=== PATIENT | male | born 1980 | race Caucasian/White ===

== ENCOUNTER 2024-09-28 19:40 | Emergency (ER) | payer BC, SELFPAY ==
--- OUTSIDE RECORDS SUMMARY | 2024-09-28 19:43 | XMS_ITS | Clinical Summary ---
Author Organization [facility] Address [place], [place] [address] Care Team Providers Care [address] Sprinkler Name Role Phone Filipe Canales MD Primary Care Provider + Allergies Active Allergy Reactions Criticality Noted Date Comments Lisinopril Cough Medium 07/25/2018 Unlisted Allergen (Include Detail In Comments) Rash Medium 07/24/2018 Neoprene (coating on joint braces) Paroxetine Intolerance-Can't Take 01/14/2007 fatigue Medications Patients Unique Medication From Home Take 2 tablets by mouth 2 times daily if needed for Other (Specify) (for pain). Dried Hicks pills Active nitroglycerin (NITROSTAT) 0.4 mg sublingual tabletIndications :ASHD (arteriosclerotic heart disease) Place 1 tablet under the tongue every 5 minutes if needed. 25 tablet 07/25/2018 1:49 PM EQUINE BREEDER 8 Active Cholecalciferol, Vitamin D3, (VITAMIN D-3) 5,000 unit tab Take 1 tablet by mouth once daily. 0 8 Active aspirin chewable 81 mg chewable tabletIndications :ASHD (arteriosclerotic heart disease) Take 1 tablet by mouth once daily. 90 tablet 3 9 Active FREESTYLE SELINA 14 DAY SENSOR kitIndications:Ty pe 2 diabetes mellitus without complication, without long-term current use of insulin (HC) As directed. Change every 14 days 2 Each 11 9 Active PRODIGY NO CODING stripIndications: Diabetes mellitus type 2 in nonobese (HC) USE STRIP TO CHECK GLUCOSE THREE TIMES DAILY DIRECTED 300 Each 3 0 Active blood-glucose meterIndications: Diabetes mellitus type 2 in nonobese (HC) Dispense meter, test strips, lancets covered by pt ins. Dispense item covered by pt ins. Check 3 times daily. 1 Device 0 Active blood sugar diagnostic (BLOOD GLUCOSE TEST) stripIndications: Diabetes mellitus type 2 in nonobese (HC) Test 3 times per day. Dispense item covered by pt ins 300 Each 3 0 Active lancetsIndication s:Diabetes mellitus type 2 in nonobese (HC) Test 3 times per day. Dispense item covered by pt ins 300 Each 3 0 Active pioglitazone (ACTOS) 30 mg tabletIndications :Diabetes mellitus type 2 in nonobese (HC) Take 1 tablet by mouth once daily. 90 tablet 3 0 Active metoprolol (LOPRESSOR) 100 mg tabletIndications :ASHD (arteriosclerotic heart disease),Essentia l hypertension Take 1 tablet by mouth 2 times daily. 180 tablet 3 0 Active clopidogreL (PLAVIX) 75 mg tabletIndications :ASHD (arteriosclerotic heart disease) Take 1 tablet by mouth every morning. Do not stop taking or miss doses for minimum one year/ until OK'd by classifier tender. 90 tablet 3 0 Active allopurinoL (ZYLOPRIM) 100 mg tabletIndications :Gout, unspecified cause, unspecified chronicity, unspecified site TAKE 1 TABLET BY MOUTH TWICE A DAY 180 Tablet 1 Active metFORMIN (GLUCOPHAGE) 1,000 mg tabletIndications :Type 2 diabetes mellitus without complication, without long-term current use of insulin (HC) TAKE 1 TABLET BY MOUTH TWICE A DAY 180 Tablet 1 Active losartan (COZAAR) 25 mg tabletIndications :STEMI involving left circumflex coronary artery (HC),Essential hypertension TAKE 1 TABLET BY MOUTH EVERY DAY 90 Tablet 1 Active atorvastatin (LIPITOR) 80 mg tabletIndications :ASHD (arteriosclerotic heart disease) TAKE 1 TABLET BY MOUTH EVERYDAY AT BEDTIME 90 Tablet 1 Active glipiZIDE (GLUCOTROL) 10 mg tabletIndications :Diabetes mellitus type 2 in nonobese (HC) TAKE 1 TABLET BY MOUTH EVERY DAY BEFORE A MEAL 90 Tablet 1 Active hydroCHLOROthiazi de (HCTZ) 25 mg tabletIndications :HTN (hypertension) TAKE 1 TABLET BY MOUTH EVERY DAY 90 Tablet 1 Active Active Problems Problem Noted Date Diagnosed Date Type 2 diabetes mellitus wit h circulatory disorder, without long-term current use of insulin 05/10/2020 Retinopathy 06/29/2019 Chronic insomnia 08/23/2018 ASHD (arteriosclerotic heart disease) 07/24/2018 STEMI involving left circumflex coronary artery 07/24/2018 Acute pericarditis 07/23/2018 HTN (hypertension) 07/23/2018 ACS (acute coronary syndrome) 07/23/2018 Chest pain 07/23/2018 Mixed hyperlipidemia 07/23/2018 Gout, unspecified 01/16/2009 ADD (attention deficit disorder) 01/16/2009 Encounters Date Type Department Care Team Description 09/15/2024 Orders Only [facility] Scanner 1 scan: (1-Ord) VASCULAR and INTERVENTIONAL EXPERTS, LOWER EXTREMITY ARTERIAL PHYSIOLOGIC, 09/15/2024 from Last 3 Months Immunizations Name Administration Dates Next Due DTaP 12/25/1983 Influenza, IIV4 05/10/2020,06/07/2019,07/16/2018 MMR 04/07/1996 Pneumococcal conj 13-Valent (Prevnar 13) 019 Tdap 07/16/2018 Family History Medical History Relation Name Comments Obesity Brother Diabetes type II Father Heart Disease Father s/p CABG x 2 d ue to failing grafts and PCI's Hyperlipidemia Father Emphysema Maternal Grandfather Heart attack Maternal Grandmother Possibl y in her 50-60's Brain cancer Paternal Grandfather Relation Name Status Comments Brother Alive Father Alive Maternal Grandfather Maternal Grandmother Mother Alive Paternal Grandfather Paternal Grandmother Social History Tobacco Use Types Packs/Day Years Used Date Smoking Tobacco: Never Smokeless Tobacco: Never Tobacco Cessation:Counseling Given: Yes Comments:Second hand smoke as a child Alcohol Use Standard Drinks/Week Comments No 0 (1 standard drink = 0.6 oz pur e alcohol) PHQ-2 Answer Date Recorded PHQ-2 TOTAL SCORE 5 04/06/2020 Social Connections Answer Date Recorded Frequency of Communication with Friends and Fami ly Not on file 08/18/2021 Financial Resource Strain Answer Date R ecorded Difficulty of Paying Living Expenses Not on file 08/18/2021 Difficulty of Paying Living Expenses Not on file 08/18/2021 Sex and Gender Information Value Date Recorded Sex Assigned at Not on file Legal Sex Male 5:36 AM EQUINE BREEDER Gender Identity Not on file Sexual Orientation Not on file Obstetrics History Last Filed Vital Signs Vital Sign Reading Time Taken Comments Blood Pressure 124/85 05/10/2020 3:49 PM CDT Pulse 88 05/10/2020 3:49 PM CDT Temperature 36.6 C (97.8 F) 05/10/2020 3:49 PM CDT Respiratory Rate 18 07/25/2018 12:5 5 PM EQUINE BREEDER Oxygen Saturation 98% 05/10/2020 3:49 PM CDT Inhaled Oxygen Concentration - - Weight 135.9 kg (299 lb 9.6 oz) 04/06/2020 3:48 PM CDT Height 176.4 cm (5' 9.45) 04/06/2020 3:48 PM CD T Body Mass Index 43.67 04/06/2020 3:48 PM CDT Plan of Treatment Health Maintenance Due Date Last Done Comments HIV for age 15-65 1993 Hepatitis C screening for age 18-79 1996 BMI (ht and wt on same day) for age 18+ 04/06/2021 04/06/2020, 07/08/2019, 06/07/2019, Additional history exists Depression screening for age 12+ 04/06/2021 04/06/2020, 2018, 07/16/2018 Colonoscopy through age 75 2023 COVID-19 vaccine series ( season) 2024 08/06/2021, 07/16/2021 Influenza for age 9-49 04/18/2024 0, 06/07/2019, 07/16/2018 Lipids for age 45-75 04/06/2025 04/06/2020, 10/20/2018, 07/23/2018, Additional history exists Tetanus booster 07/16/2028 07/16/2018 Tdap Completed 07/16/2018 Pneumococcal series for age 6-49 Aged Out 06/07/2019 No longer eligible based on patient's age to complete this topic Procedures Procedure Name Priority Date/Time Associated Diagnosis Comments SCAN-ULTRASOUND REPORT 09/15/2024 12:00 AM EQUINE BREEDER LIPID PANEL W REFLEX MEASURED LDL Routine 04/06/2020 3:39 PM CDT Diabetes mellitus type 2 in nonobese (HC) from Last 3 Months or Most Recently Relevant to Health Maintenance Results * SCAN-ULTRASOUND REPORT (09/15/2024 12:00 AM EQUINE BREEDER) Anatomical Region Laterality Modality Other us Scanner OTHER Final Result * (ABNORMAL) LIPID PANEL W REFLEX MEASURED LDL (04/06/2020 3:39 PM CDT) CHOLESTEROL,TOTAL 144 100 - 199 mg/dL 04/06/2020 8:21 PM CDT [facility] TRIGLYCERIDES 223(H) <150 mg/dL 04/06/2020 8:21 PM CDT [facility] HDL CHOLESTEROL 36(L) >40 mg/dL 0 8:21 PM CDT [facility] NON-HDL CHOLESTEROL 108 <145 mg/dl 04/06/2020 8:21 PM CDT [facility] CHOL/HDL RATIO 4.00 <4.50 04/06/2020 8:21 PM CDT [facility] LDL CHOLESTEROL 63 <=130 mg/dL 04/06/2020 8:21 PM CDT [facility] PROVIDER ORDERED STATUS RANDOM 04/06/2020 8:21 PM CDT [facility] Blood BLOOD SPECIMEN / Unknown Venipuncture / Unknown 04/06/2020 3:39 PM CDT 04/06/2020 3:40 PM CDT Filipe Canales MD CHEMISTRY Final Re sult [facility] [address] [place] [address], [facility] [address] [place] [address], [place] [phone] from Last 3 Months or Most Recently Relevant to Health Maintenance Insurance [facility] Advance Directives * Full Code (Latest Code Status on File) Date Activated Date Inactivated Comments 07/23/2018 9:23 PM 07/25/2018 4:[address] Sprinkler Relationship Specialty Start Date End Date Votel, Filipe Marshall MD [address] [place] [address] PCP - General Family Practice 01/09/23
--- OUTSIDE RECORDS SUMMARY | 2024-09-28 19:43 | XMS_ITS | Encounter Summary ---
Author Organization [facility] Address [address] [place] [address] Care Team Providers Care Mortgage Specialist Name Role Phone Veronica Holt Primary Care Provider [phone] Reason for Referral * Medication Prior Authorization - Closed Specialty Diagnoses / Procedures Referred By Jt t Referred To Contact Diagnoses Type 2 diabetes mellitus with hyperlipidemia (HRC) Veronica Holt MBBS [address] [place] [address] Referral ID Status Reason Start Date Expiration Date Visits Re quested Visits Authorized [id number] Closed 1 1 T SUPERVISOR Reason for Visit * Reason Comments MEDICATION CHECK DIZZINESS For about 3 months Wound Check Bilateral feet Encounter Details Date Type Department Care Team (Late st Contact Info) Description 09/27/2024 2:30 PM PAINT SUPERVISOR Office Visit [place] [address] Internal [address] [place] [address]. [place], [place] [id number] Veronica Holt MBBS [address] [place], [place] [id number] Coronary artery disease involving [place] coronary artery of [place] heart without angina pectoris (HRC) (Primary Dx); Mixed hyperlipidemia (HRC); Type 2 diabetes mellitus with hyperlipidemia (HRC); Primary hypertension (HRC); B12 deficiency (HRC); Screening for colon cancer; Tachycardia; Ulcer of both feet, limited to breakdown of skin (HRC) Social History Tobacco Use Types Packs/Day Years Used Date Smoking Tobacco: Never Passive Smoke Exposure: Never Smokeless Tobacco: Never Tobacco Cessation:Counseling Given: Not Answered Alcohol Use Standard Drinks/Week Comments Never 0 (1 standard drink = 0.6 oz pur e alcohol) PHQ-2 Answer Date Recorded PHQ-2 Score 2 09/27/2024 Sex and Gender Information Value Date Recorded Sex Assigned at Male 07/16/2021 7:51 AM PAINT SUPERVISOR Gender Identity Male 07/16/2021 7:51 AM PAINT SUPERVISOR Sexual Orientation Not on file documented as of this encounter Last Filed Vital Signs Vital Sign Reading Time Taken Comments Blood Pressure 138/99 09/27/2024 2:20 PM PAINT SUPERVISOR Pulse 111 09/27/2024 2:20 PM PAINT SUPERVISOR Temperature - - Respiratory Rate - - Oxygen Saturation - - Inhaled Oxygen Concentration - - Weight 118.5 kg (261 lb 3.2 oz) 025 2:20 PM PAINT SUPERVISOR Height 177.8 cm (5' 10) 09/27/2024 2:2 0 PM PAINT SUPERVISOR with shoes Body Mass Index 37.48 09/27/2024 2:20 PM PAINT SUPERVISOR documented in this encounter Patient Instructions * Patient Instructions* Veronica Holt MBBS - 09/27/2024 2:30 PM PAINT SUPERVISOR Start taking medicines as prescribed today. I will check blood work today and get back to you with additional recommendations. Apply over the counter antibiotic cream on skin wounds twice a day every day until skin wounds healcompletely. Wash your feet daily with water. Follow up with me in a month for recheck. T SUPERVISOR documented in this encounter Progress Notes * Veronica Holt MBBS - 09/27/2024 2:30 PM CST Chief Complaint Patient presents with MEDICATION CHECK DIZZINESS For about 3 months Wound Check Bilateral feet HPI: 44 y.o.male here for medication refills. He was last seen at our clinic 04/2023 for diabetes management. He reports that he has been out of Glipizide for past couple months. He does have Jardiance and Metformin at home but he has not taken them consistently. No side effects from these Rx. He has been feeling some dizziness for past 3 months or so - notices it when he changes posture quickly or moves head quickly. Dizziness would last for 2-3 minutes and then resolves. Dizziness does not happen daily - once every 2 days . Denies any focal weakness - tinging - numbness / change in speech - swallowing / change in vision. He has wounds in both feet - he reports that he had blisters in feet and then popped about a month ago and now has skin ulcer. Denies any tingling / numbness in feet. No pain at ulcer site. Ulcer size has reduced to about 50% since they appeared. Estimated body mass index is 37.48 kg/m?? as calculated from the following: Height as of this encounter: 1.778 m (5' 10). Weight as of this encounter: 118.5 kg (261 lb 3.2 oz). Wt Readings from Last 5 Encounters: 09/27/24 118.5 kg (261 lb 3.2 oz) 04/22/23 117.9 kg (260 lb) 01/17/23 116.4 kg (256 lb 9.6 oz) 12/27/22 120.3 kg (265 lb 3.2 oz) 08/06/21 128.8 kg (284 lb) BP Readings from Last 5 Encounters: 09/27/24 (!) 138/99 04/22/23 112/76 01/17/23 102/75 12/27/22 (!) 133/96 02/20/22 117/80 Objective: BP (!) 138/99 (BP Location: Right Arm, BP Cuff Size: Large) Pulse (!) 111 Ht 1.778 m (5' 10) Comment: with shoes Wt 118.5 kg (261 lb 3.2 oz) BMI 37.48 kg/m?? Physical Exam Vitals reviewed. Constitutional: General: He is not in acute distress. Appearance: He is well-developed. HENT: Right Ear: Tympanic membrane normal. Left Ear: Tympanic membrane normal. Ears: Comments: Some wax in both ears without impaction. Eyes: Extraocular Movements: Extraocular movements intact. Conjunctiva/sclera: Conjunctivae normal. Pupils: Pupils are equal, round, and reactive to light. Cardiovascular: Rate and Rhythm: Regular rhythm. Tachycardia present. Heart sounds: Normal heart sounds. No murmur heard. No friction rub. No gallop. Pulmonary: Effort: Pulmonary effort is normal. No respiratory distress. Breath sounds: Normal breath sounds. No stridor. No wheezing, rhonchi or rales. Abdominal: General: There is no distension. Palpations: Abdomen is soft. Tenderness: There is no abdominal tenderness. There is no guarding. Musculoskeletal: General: Swelling present. Comments: Bilateral lower extremities edema with some venous stasis noted. Bilateral great toes dorsomedial aspect has superficial skin ulcer 2-3 mm size with clear base and no surrounding erythema. No drainage. Neurological: Mental Status: He is alert and oriented to person, place, and time. Coordination: Coordination normal. Gait: Gait normal. Assessment/Plan: 44 y.o.male here for multiple concerns. Healthcare maintenance checklist reviewed in [facility]. Health Maintenance Due Topic Date Due FIT Colon Cancer Screening Never done Adult Preventive Visit 12/28/2023 COVID-19 Vaccine ( season) 2024 Rolando was seen today for medication check, dizziness and wound check. Diagnoses and all orders for this visit: Coronary artery disease involving [place] coronary artery of [place] heart without angina pectoris (HRC) - clopidogrel (PLAVIX) 75 MG tablet; Take 1 Tablet (75 mg) by mouth daily. - metoprolol succinate (TOPROL XL) 50 MG 24 hour release tablet; Take 1 Tablet (50 mg) by mouth daily. - atorvastatin (LIPITOR) 80 MG tablet; Take 1 Tablet (80 mg) by mouth daily. Mixed hyperlipidemia (HRC) - Lipid Panel & Direct LDL (if Needed); Future - atorvastatin (LIPITOR) 80 MG tablet; Take 1 Tablet (80 mg) by mouth daily. Type 2 diabetes mellitus with hyperlipidemia (HRC) - Hgb A1C; Future - Complete Blood Count -W/Diff; Future - Comp Metabolic Panel; Future - TSH with Free T4 (if TSH Abnormal); Future - Albumin/Creatinine Ratio,Random Urine; Future - Lipid Panel & Direct LDL (if Needed); Future - metFORMIN (GLUCOPHAGE) 1000 MG tablet; Take 1 Tablet (1,000 mg) by mouth two times a day with meals. - empagliflozin (JARDIANCE) 25 MG tablet; Take 1 Tablet (25 mg) by mouth daily. - semaglutide (OZEMPIC) 2 MG/3ML injection; Inject 0.25 mg subcutaneously once a week for 28 days, THEN 0.5 mg once a week for 28 days. - Continuous Glucose Sensor (FREESTYLE SELINA 3 SENSOR); Change every 14 days. Primary hypertension (HRC) - losartan-hydrochlorothiazide (HYZAAR) 50-12.5 MG tablet; Take 1 Tablet by mouth daily. B12 deficiency (HRC) - Vitamin B12 Only; Future Screening for colon cancer - FIT, OCCULT BLOOD, STOOL; Future Tachycardia - ECG 12 Lead Outpatient Ulcer of both feet, limited to breakdown of skin (HRC) Other orders - INFLUENZA CCIIV3 6 MONTHS+ (FLUCELVAX) Lab Results Component Value Date Creatinine 1.04 09/27/2024 Glucose 318 (H) 09/27/2024 CO2 22 09/27/2024 Chloride 103 09/27/2024 Potassium 4.2 09/27/2024 Sodium 136 09/27/2024 BUN 12 09/27/2024 Calcium 9.5 09/27/2024 GFR, Estimated >60 09/27/2024 Lab Results Component Value Date WBC 10.2 09/27/2024 RBC 5.66 09/27/2024 Hemoglobin 16.4 09/27/2024 HCT 47.4 09/27/2024 MCV 83.7 09/27/2024 RDW 13.5 09/27/2024 Platelets 274 09/27/2024 Lab Results Component Value Date Hemoglobin A1C 9.7 (H) 07/16/2021 Hemoglobin A1C (Rapid) 11.6 (H) 09/27/2024 Hemoglobin A1C (Rapid) 7.0 (H) 04/22/2023 Hemoglobin A1C (Rapid) 9.4 (H) 12/27/2022 He is noted to have tachycardia on vitals. He has been feeling some random palpitation episodes chronically. Denies any exertional chest pain / shortness of breath. EKG today showed sinus tachycardia. He has h/o CAD but denies any exertional chest pain / shortness of breath. He has been out of his Rx for past many months. I have prescribed medicines as above today for heart rate and blood pressure control. Diabetes- he used to be on Metformin, Glipizide and Jardiance. He inquired about Ozempic option. Wediscussed side effects. I advised him to get back to Metformin, Jardiance and Ozempic as above. We will discontinue Glipizide for now. He has continuous glucose monitor and blood glucose rangers frommid 100- 300s range per his report. I advised him to take Metformin and Jardiance daily and we will start Ozempic for better diabetes control. Skip Glipizide for now to prevent hypoglycemia. Dizziness - unclear etiology. No focal neurological deficit on exam. Could be related to uncontrolled diabetes, hypertension. We will monitor this clinically. If no improvement with better hypertension and diabetes control then refer to vestibular rehab. Foot ulcer- no signs of infection. I advised him to monitor them and apply OTC antibiotic daily. FIT kit was provided to him from clinic for colon cancer screening. I spent a total of 53 minutes on the day of the visit. Patient Instructions Start taking medicines as prescribed today. I will check blood work today and get back to you with additional recommendations. Apply over the counter antibiotic cream on skin wounds twice a day every day until skin wounds healcompletely. Wash your feet daily with water. Follow up with me in a month for recheck. JERALD Acuña T SUPERVISOR documented in this encounter Plan of Treatment Upcoming Encounters Date Type Department Care Team (Late st Contact Info) Description 10/25/2024 3:30 PM CDT Appointment [place] [id number] Internal [address] [place] [address]. [place] [address] Veronica Holt MBBS [address] [place] [id number] Scheduled Orders Name Type Priority Associated Diagnoses Orde r Schedule FIT, OCCULT BLOOD, STOOL Lab Routine Screening for colon cancer Expected: 09/27/2024, Expires: 09/27/2025 documented as of this encounter Procedures Procedure Name Priority Date/Time Associated Diagnosis Comments ECG 12 LEAD OUTPATIENT Routine 09/27/2024 2:41 PM PAINT SUPERVISOR Tachycardia documented in this encounter Results * (ABNORMAL) Lipid Panel & Direct LDL (if Needed) (09/27/2024 4:15 PM PAINT SUPERVISOR) Cholesterol 186 0 - 199 mg/dL 09/27/2024 4:41 PM PAINT SUPERVISOR [place] [id number] Triglyceride 318(H) <=149 mg/dL 09/27/2024 4:41 PM PAINT SUPERVISOR [place] [id number] HDL Cholesterol 36(L) >=40 mg/dL 4:41 PM PAINT SUPERVISOR [place] [address] [facility] LDL, Calculated 86 <130 mg/dL 4:41 PM PAINT SUPERVISOR [place] [address] [facility] Non HDL Chol, Calculated 150 <=159 mg/dL 09/27/2024 4:41 PM PAINT SUPERVISOR [place] [address] [facility] Cholesterol/HDL Ratio 5.2(H) <=5.0 09/27/2024 4:41 PM PAINT SUPERVISOR [place] [id number] Hours Fasting 4.0 8 - 12 Hours 09/27/2024 4:41 PM PAINT SUPERVISOR [place] [address] [facility] Blood Venipuncture / Unknown 09/27/2024 4:15 PM PAINT SUPERVISOR 09/27/2024 4:15 PM PAINT SUPERVISOR Veronica [facility] Performing Organization Address City/[facility] Co de Phone Number [facility] [address] [place] [address], [facility] * (ABNORMAL) Vitamin B12 Only (09/27/2024 4:15 PM PAINT SUPERVISOR) Vitamin B12 918(H) 213 - 816 pg/mL 09/27/2024 9:36 PM PAINT SUPERVISOR [facility] Blood Venipuncture / Unknown 09/27/2024 4:15 PM PAINT SUPERVISOR 09/27/2024 4:15 PM PAINT SUPERVISOR Veronica [facility]QU[facility] Performing Organization Address City/[facility]/ZIP Co de Phone Number [facility] [address] [place], [place] [address] * TSH with Free T4 (if TSH Abnormal) (09/27/2024 4:15 PM PAINT SUPERVISOR) TSH, Reflex 2.50 0.30 - 4.50 uIU/mL 09/27/2024 9:29 PM PAINT SUPERVISOR [facility] Blood Venipuncture / Unknown 09/27/2024 4:15 PM PAINT SUPERVISOR 09/27/2024 4:15 PM PAINT SUPERVISOR [facility] [address] [facility] [employer] [address] * (ABNORMAL) Comp Metabolic Panel (09/27/2024 4:15 PM PAINT SUPERVISOR) Pathologist [facility] [place] Sodium 136 136 - 145 mmol/L 09/27/2024 4:41 PM [place] [address] [facility] Potassium 4.2 3.5 - 5.1 mmol/L 09/27/2024 4:41 PM [place] [id number] Chloride 103 98 - 109 mmol/L 09/27/2024 4:41 PM [place] [address] [facility] CO2 22 20 - 29 mmol/L 09/27/2024 4:41 PM [place] [id number] Anion Gap 11 6 - 16 mmol/L 09/27/2024 4:41 PM [place] [id number] Calcium 9.5 8.4 - 10.4 mg/dL 09/27/2024 4:41 PM [place] [id number] BUN 12 7 - 26 mg/dL 09/27/2024 4:41 PM [place] [id number] Creatinine 1.04 0.73 - 1.18 mg/dL 09/27/2024 4:41 PM [place] [id number] Alkaline Phosphatase 96 40 - 150 U/L 09/27/2024 4:41 PM [place] [id number] AST (SGOT) 20 10 - 40 U/L 09/27/2024 4:41 PM [place] [id number] ALT (SGPT) 25 0 - 55 U/L 09/27/2024 4:41 PM [place] [id number] Bilirubin, Total 0.4 0.2 - 1.2 mg/dL 09/27/2024 4:41 PM [place] [address] [facility] Protein, Total 7.3 6.4 - 8.3 g/dL 09/27/2024 4:41 PM [place] [address] [facility] Albumin 3.7 3.5 - 5.0 g/dL 09/27/2024 4:41 PM [place] [address] [facility] Glucose 318(H) 70 - 100 mg/dL 09/27/2024 4:41 PM [place] [address] [facility] Comment:The given reference range is for the fasting state. Non-fasting reference range for glucose is 70 - 180 mg/dL. GFR, Estimated >60 >60 mL/min/1.7 3m2 09/27/2024 4:41 PM [place] [address] [facility] Hours Fasting 4.0 8 - 12 Hours 09/27/2024 4:41 PM [place] [address] [facility] Blood Venipuncture / Unknown 09/27/2024 4:15 PM PAINT SUPERVISOR 09/27/2024 4:15 PM PAINT SUPERVISOR [facility]_[address] [address] * (ABNORMAL) Hgb A1C (09/27/2024 4:15 PM PAINT SUPERVISOR) Hemoglobin A1C (Rapid) 11.6(H) <=5.6 % 09/27/2024 4:35 PM [place] [address] [facility] Estimated Average Glucose (Calc) 286 < 117 mg/dL 09/27/2024 4:35 PM [place] [address] [facility] Comment:Estimated average gl ucose (eAG) converts A1c into glucose units (mg/dL) and estimates average glucose over the past approximately 3 months. The eAG reference interval (<117 mg/dL) corresponds to an A1c of <5.7%. Blood Venipuncture / Unknown 09/27/2024 4:15 PM PAINT SUPERVISOR 09/27/2024 4:15 PM PAINT SUPERVISOR Narrative [place] [address] [facility] - 09/27/2024 4:35 PM PAINT SUPERVISOR For patients not previously diagnosed with diabetes: 5.7-6.4%: Increased risk for diabetes 6.5% and greater: Diagnostic for diabetes For patients diagnosed with diabetes: <8.0%: Goal of therapy for ages 18-75 Clinicians may recommend a higher or lower goal for specific individuals. The test method used for this Hemoglobin A1c result can experience interference from elevated hemoglobin and other hemoglobin variants. In patients with results that do not correlate clinically, contact the lab for further direction. Veronica [facility]QU[facility]_1 Performing Organization Address City/[facility] Co de Phone Number [facility] [address] [facility] [address] [place] [address], [facility] * ECG 12 Lead Outpatient (09/27/2024 2:41 PM PAINT SUPERVISOR) Ventricular Rate 107 BPM [facility] Atrial Rate 107 BPM [facility] P-R Interval 146 ms [facility] QRS Duration 74 ms [facility] QT 330 ms [facility] QTC 440 ms [facility] P [place] 35 degrees MUSE GHP R [place] 88 degrees MUSE GHP T [place] 42 degrees MUSE [facility] 09/27/2024 2:41 PM PAINT SUPERVISOR Narrative [facility] - 09/27/2024 9:33 PM PAINT SUPERVISOR Sinus tachycardia Nonspecific ST and T wave abnormality Abnormal ECG When compared with ECG of 20-FEB-2022 14:31, Premature atrial complexes are no longer Present Confirmed by Oc Forde ([id number]) on 09/27/2024 9:33:58 PM Procedure Note Oc Forde MD - 09/27/[address] and T wave abnormality Abnormal ECG When compared with ECG of 20-FEB-2022 14:31, Premature atrial complexes are no longer Present Confirmed by Oc Forde ([id number]) on 09/27/2024 9:33:58 PM Veronica MARQUES PN ECG ORDERABLES Performing Organization Address [facility]/ZIP Co de Phone Number [facility] [address] [place] [address] documented in this encounter Visit Diagnoses Diagnosis Coronary artery disease involving [place] coronary artery of [place] heart without angina pectoris (HRC)- Primary Mixed hyperlipidemia (HRC) Mixed hyperlipidemia Type 2 diabetes mellitus with hyperlipidemia (HRC) Primary hypertension (HRC) Unspecified essential hypertension B12 deficiency (HRC) Other B-complex deficiencies Screening for colon cancer Special screening for malignant neoplasms, colon Tachycardia Tachycardia, unspecified Ulcer of both feet, limited to breakdown of skin (HRC) documented in this encounter Care Teams Mortgage Specialist Relationship Specialty Start Date End Date Veronica Holt MBBS [address] [place] [address] PCP - General Internal Medicine 06/29/21 documented as of this encounter
--- OUTSIDE RECORDS SUMMARY | 2024-09-28 19:43 | XMS_ITS | Encounter Summary ---
Author Organization [facility] Address [address], [place] [address] Care Team Providers Care Busser Name Role Phone Veronica Holt Primary Care Provider [phone] Encounter Details Date Type Department Care Team (Late st Contact Info) Description 09/27/2024 3:35 PM [employer]ATING [employer] T[employer]ER Lab Visit [place] [address] [place] [address]. [place], [place] [id number] Screen for colon cancer (Primary Dx); Type 2 diabetes mellitus with hyperlipidemia (HRC); Type 2 diabetes mellitus with hyperlipidemia (HRC); B12 deficiency (HRC); Mixed hyperlipidemia (HRC) Social History Tobacco Use Types Packs/Day Years Used Date Smoking Tobacco: Never Passive Smoke Exposure: Never Smokeless Tobacco: Never Alcohol Use Standard Drinks/Week Comments Never 0 (1 standard drink = 0.6 oz pur e alcohol) PHQ-2 Answer Date Recorded PHQ-2 Score 2 09/27/2024 Sex and Gender Information Value Date Recorded Sex Assigned at Male 07/16/2021 7:51 AM [employer] TREATING [employer]ER Gender Identity Male 07/16/2021 7:51 AM 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. [place], [place] [phone] Veronica Holt MBBS [address] [place] [address] documented as of this encounter Procedures Procedure Name Priority Date/Time Associated Diagnosis Comments ALBUMIN/CREAT RATIO Routine 09/27/2024 4 :19 PM [employer]ATING [employer] T[employer]ER Type 2 diabetes mellitus with hyperlipidemia (HRC) CBC AND DIFFERENTIAL PANEL Routine 09/27/2024 4:15 PM [employer]ATING [employer] T[employer]ER Type 2 diabetes mellitus with hyperlipidemia (HRC) CONTAINER TEST Routine 09/27/2024 4:15 PM [employer] TREATING [employer] T[employer]ER Screen for colon cancer FIT COLLECTION KIT PREP Routine 09/27/2024 4:15 PM HE[employer] TREATING [employer]NA[employer] TENDER Screen for colon cancer LIPID PANEL & DIRECT LDL (IF NEEDED) Routine 09/27/2024 4:15 PM HE[employer] TREATING [employer]NA[employer] T[employer]ER Mixed hyperlipidemia (HRC) Type 2 diabetes mellitus with hyperlipidemia (HRC) COMPLETE BLOOD COUNT-W/DIFF Routine 09/27/2024 4:15 PM [employer] TREATING [employer] T[employer]ER Type 2 diabetes mellitus with hyperlipidemia (HRC) COMPREHENSIVE METABOLIC PANEL Routine 09/27/2024 4:15 PM HE[employer] TREATING [employer]NA[employer] T[employer]ER Type 2 diabetes mellitus with hyperlipidemia (HRC) TSH, SENSITIVE (WITH REFLEX) Routine 09/27/2024 4:15 PM HE[employer] TREATING [employer]NA[employer] T[employer]ER Type 2 diabetes mellitus with hyperlipidemia (HRC) HGB A1C Routine 09/27/2024 4:15 PM HE[employer] TREATING [employer]NA[employer] T[employer]ER Type 2 diabetes mellitus with hyperlipidemia (HRC) VITAMIN B12 ONLY Routine 09/27/2024 4:15 PM HE[employer] TREATING [employer]ER B12 deficiency (HRC) documented in this encounter Results * (ABNORMAL) Albumin/Creatinine Ratio,Random Urine (09/27/2024 4:19 PM HE[employer]REATING [employer] T[employer]ER) Albumin/Creati nine Ratio, Urine, Random 739(H) <30 mg/g 09/27/2024 4:51 PM [facility] [address] LABORATORY Albumin, Urine, Random 251.2 mg/L 09/27/2024 4:51 PM [place] [address] LAB[facility]ATORY Creatinine, Urine, Random 34 >20 mg/dL mg/dL 09/27/2024 4:51 PM [place] [address] [facility]ORY Urine Non-blood Collection / Unknown 09/27/2024 4:19 PM [employer]ATING [employer]ER 09/27/2024 4:19 PM HE[employer] TREATING [employer] T[employer]ER Veronica MARQUES LAB_1 Performing Organization Address [facility] Co de Phone Number [place] [address] [place] [phone] * FIT Collection Kit Prep (09/27/2024 4:15 PM HEAT TREATING F[employer]NACE TENDER) [facility] FIT Kit Prep Fit Kit Given 09/27/2024 6:00 PM [place] [address] [facility]ORY Stool Non-blood Collection / Unknown 09/27/2024 4:15 PM [employer]ATING [employer] TENDER 09/27/2024 4:15 PM HE[employer] TREATING [employer]NA[employer] T[employer]ER Veronica MARQUES LAB_1 Performing Organization Address [facility] de Phone Number [place] [address] [place] [phone] * Complete Blood Count-W/Diff (09/27/2024 4:15 PM HE[employer] TREATING [employer] TENDER) [facility] WBC 10.2 3.5 - 10.5 x10(9)/L 09/27/2024 4:20 PM [place] [address] [facility] RBC 5.66 4.32 - 5.72 x10(12)/L 09/27/2024 4:20 PM [place] [address] [facility] Hemoglobin 16.4 13.5 - 17.5 g/dL 09/27/2024 4:20 PM [place] [address] [facility] HCT 47.4 38.8 - 50.0 % 09/27/2024 4:20 PM [place] [address] [facility] MCV 83.7 80.0 - 100.0 fL 09/27/2024 4:20 PM [place] [address] [facility] MCH 29.0 27.6 - 33.3 pg 09/27/2024 4:20 PM [place] [address] [facility] MCHC 34.6 31.5 - 35.2 g/dL 09/27/2024 4:20 PM [place] [address] [facility] RDW 13.5 11.9 - 15.5 % 09/27/2024 4:20 PM [place] [address] [facility] Platelets 274 150 - 450 x10(9)/L 09/27/2024 4:20 PM [place] [address] [facility] Automated NRBC 0 <=0 /100 WBC 09/27/2024 4:20 PM [place] [address] [facility] Neutrophil Absolute 6.3 1.7 - 7.0 10(9)/L 09/27/2024 4:20 PM [place] [address] [facility] Lymphocyte Absolute 3.1 1.0 - 4.8 10(9)/L 09/27/2024 4:20 PM [place] [address] [facility] Monocyte Absolute 0.6 0.2 - 0.9 10(9)/L 09/27/2024 4:20 PM [place] [address] [facility] Eosinophil Absolute 0.2 0.0 - 0.5 10(9)/L 09/27/2024 4:20 PM [place] [address] [facility] Basophil Absolute 0.1 0.0 - 0.3 10(9)/L 09/27/2024 4:20 PM [place] [address] [facility] Immature Granulocyte % 0.3 0.0 - 0.5 % 09/27/2024 4:20 PM [place] [address] [facility] Blood Venipuncture / Unknown 09/27/2024 4:15 PM HE[employer]ATING [employer]ER 09/27/2024 4:15 PM HE[employer] TREATING [employer]NA[employer] TENDER Veronica MARQUES LAB_[address] [phone], [facility] * (ABNORMAL) Lipid Panel & Direct LDL (if Needed) (09/27/2024 4:15 PM HEAT TREATING [employer]NACE TENDER) [facility] Signature Cholesterol 186 0 - 199 mg/dL 09/27/2024 4:41 PM [place] [address] [facility] Triglyceride 318(H) <=149 mg/dL 09/27/2024 4:41 PM [place] [address] [facility]ORY HDL Cholesterol 36(L) >=40 mg/dL 4:41 PM [place] [address] [facility] LDL, Calculated 86 <130 mg/dL 4:41 PM [place] [address] [facility] Non HDL Chol, Calculated 150 <=159 mg/dL 09/27/2024 4:41 PM [place] [address] [facility] Cholesterol/HDL Ratio 5.2(H) <=5.0 09/27/2024 4:41 PM [place] [address] [facility] Hours Fasting 4.0 8 - 12 Hours 09/27/2024 4:41 PM [place] [address] [facility] Blood Venipuncture / Unknown 09/27/2024 4:15 PM HE[employer] T[employer]ATING [employer]NA[employer] TENDER 09/27/2024 4:15 PM HE[employer] TREATING [employer]NA[employer] TENDER Veronica MARQUES LAB_1 Performing Organization Address [facility] de Phone Number [address] [place] [phone] * (ABNORMAL) Vitamin B12 Only (09/27/2024 4:15 PM HE[employer] TREATING [employer]NA[employer] TENDER) Vitamin B12 918(H) 213 - 816 pg/mL 09/27/2024 9:36 PM HEAT TREATING F[employer]NACE TENDER [facility] Blood Venipuncture / Unknown 09/27/2024 4:15 PM HEAT TREATING F[employer]NACE TENDER 09/27/2024 4:15 PM HEAT TREATING F[employer]NACE TENDER Veronica MARQUES LAB_1 Performing Organization Address City/[facility]/ZIP Co de Phone Number [facility] [address] [place] [phone] [place] [address] * TSH with Free T4 (if TSH Abnormal) (09/27/2024 4:15 PM HE[employer] TREATING [employer]NA[employer] TENDER) TSH, Reflex 2.50 0.30 - 4.50 uIU/mL 09/27/2024 9:29 PM HE[employer] TREATING [employer]NA[employer] TENDER [facility] Blood Venipuncture / Unknown 09/27/2024 4:15 PM HEAT TREATING F[employer]NACE TENDER 09/27/2024 4:15 PM HE[employer] TREATING F[employer]NACE TENDER Veronica Holt J[facility] LAB_1 [facility] [address] * (ABNORMAL) Comp Metabolic Panel (09/27/2024 4:15 PM HEAT TREATING F[employer]NACE TENDER) Pathologist [facility] Sodium 136 136 - 145 mmol/L 09/27/2024 4:41 PM [place] [address] [facility] Potassium 4.2 3.5 - 5.1 mmol/L 09/27/2024 4:41 PM [place] [address] [facility] Chloride 103 98 - 109 mmol/L 09/27/2024 4:41 PM [place] [address] [facility] CO2 22 20 - 29 mmol/L 09/27/2024 4:41 PM [place] [address] [facility] Anion Gap 11 6 - 16 mmol/L 09/27/2024 4:41 PM [place] [address] [facility] Calcium 9.5 8.4 - 10.4 mg/dL 09/27/2024 4:41 PM [place] [address] [facility] BUN 12 7 - 26 mg/dL 09/27/2024 4:41 PM [place] [address] [facility] Creatinine 1.04 0.73 - 1.18 mg/dL 09/27/2024 4:41 PM [place] [address] [facility] Alkaline Phosphatase 96 40 - 150 U/L 09/27/2024 4:41 PM [place] [address] [facility] AST (SGOT) 20 10 - 40 U/L 09/27/2024 4:41 PM [place] [address] [facility] ALT (SGPT) 25 0 - 55 U/L 09/27/2024 4:41 PM [place] [address] [facility] Bilirubin, Total 0.4 0.2 - 1.2 mg/dL 09/27/2024 4:41 PM [place] [address] [facility] Protein, Total 7.3 6.4 - 8.3 g/dL 09/27/2024 4:41 PM [place] [address] [facility] Albumin 3.7 3.5 - 5.0 g/dL 09/27/2024 4:41 PM [place] [address] [facility] Glucose 318(H) 70 - 100 mg/dL 09/27/2024 4:41 PM [place] [address] [facility] Comment:The given reference range is for the fasting state. Non-fasting reference range for glucose is 70 - 180 mg/dL. GFR, Estimated >60 >60 mL/min/1.7 3m2 09/27/2024 4:41 PM [place] [address] [facility] Hours Fasting 4.0 8 - 12 Hours 09/27/2024 4:41 PM [place] [address] [facility] Blood Venipuncture / Unknown 09/27/2024 4:15 PM HE[employer] TREATING [employer]NACE TENDER 09/27/2024 4:15 PM HE[employer] TREATING F[employer]NACE TENDER Veronica Holt [facility] LAB_1 Performing Organization Address City/State/[facility] Co de Phone Number [address] [phone] * (ABNORMAL) Hgb A1C (09/27/2024 4:15 PM HEAT TREATING FURNACE TENDER) Hemoglobin A1C (Rapid) 11.6(H) <=5.6 % 09/27/2024 4:35 PM [place] [address] [facility] Estimated Average Glucose (Calc) 286 < 117 mg/dL 09/27/2024 4:35 PM [place] [address] [facility] Comment:Estimated average gl ucose (eAG) converts A1c into glucose units (mg/dL) and estimates average glucose over the past approximately 3 months. The eAG reference interval (<117 mg/dL) corresponds to an A1c of <5.7%. Blood Venipuncture / Unknown 09/27/2024 4:15 PM HE[employer] TREATING F[employer]NACE TENDER 09/27/2024 4:15 PM HEAT TREATING FURNACE TENDER Narrative [place] [address] [facility] - 09/27/2024 4:35 PM HEAT TREATING FURNACE TENDER For patients not previously diagnosed with diabetes: [...] lab for further direction. Veronica MARQUES LAB_1 [facility] [address] LABORATORY [address] [place] [address], [facility] documented in this encounter Visit Diagnoses Diagnosis Screen for colon cancer- Primary Special screening for malignant neoplasms, colon Type 2 diabetes mellitus with hyperlipidemia (HRC) B12 deficiency (HRC) Other B-complex deficiencies Mixed hyperlipidemia (HRC) Mixed hyperlipidemia documented in this encounter Care Teams Busser Relationship Specialty Start Date End Date Veronica oHlt MBBS [address] [place], [place] [id number] PCP - General Internal Medicine 06/29/21 documented as of this encounter
--- OUTSIDE RECORDS SUMMARY | 2024-09-28 19:43 | XMS_ITS | Clinical Summary ---
Author Organization [facility] Address [address] [place] [address] Care Team Providers Care Tree Feller Name Role Phone Veronica Holt Primary Care Provider [phone] Source Comments You are receiving this document as you are listed as the primary care provider,follow-up provider, or the patient has been referred to you for consultation.This is in compliance with the Medicare and[facility] E[facility]centive [facility],which states Providers who transition their patient to another setting of careor provider of care or refers their patient to another provider of care shouldprovide summary care record for each transition of care or referral. [facility] Allergies Active Allergy Reactions Criticality Noted Date Comments Lisinopril Cough Medium 07/25/2018 Paroxetine Other, see comments 01/14/2007 fatigue Medications Medication Sig Dispensed Refills Start Date End Date Status blood glucose test stripIndications:T ype 2 diabetes mellitus with hyperlipidemia (HRC) Use 1 Each to test three times a day. Okay to substitute to different brand per insurance coverage. 200 Strip 5 12/28/19 23 Active blood glucose monitoring deviceIndications: Type 2 diabetes mellitus with hyperlipidemia (HRC) daily. Use as directed. Pharmacy dispense brand based on insurance. 1 Each 3 12/28/19 23 Active lancetsIndications :Type 2 diabetes mellitus with hyperlipidemia (HRC) Use 1 Each to test three times a day. 200 Each 5 12/28/19 23 Active vitamin B-12 (AKA: CYANOCOBALAMIN) 1000 MCG tabletIndications: B12 deficiency (HRC) TAKE 1 TABLET BY MOUTH EVERY DAY 90 Tablet 2 09/08/19 24 Active clopidogrel (PLAVIX) 75 MG tabletIndications: Coronary artery disease involving [place] coronary artery of [place] heart without angina pectoris (HRC) Take 1 Tablet (75 mg) by mouth daily. 90 Tablet 3 09/27/19 25 Active metoprolol succinate (TOPROL XL) 50 MG 24 hour release tabletIndications: Coronary artery disease involving [place] coronary artery of [place] heart without angina pectoris (HRC) Take 1 Tablet (50 mg) by mouth daily. 90 Tablet 3 09/27/19 25 Active metFORMIN (GLUCOPHAGE) 1000 MG tabletIndications: Type 2 diabetes mellitus with hyperlipidemia (HRC) Take 1 Tablet (1,000 mg) by mouth two times a day with meals. 180 Tablet 3 09/27/19 25 Active empagliflozin (JARDIANCE) 25 MG tabletIndications: Type 2 diabetes mellitus with hyperlipidemia (HRC) Take 1 Tablet (25 mg) by mouth daily. 90 Tablet 3 09/27/19 25 Active semaglutide (OZEMPIC) 2 MG/3ML injectionIndicatio ns:Type 2 diabetes mellitus with hyperlipidemia (HRC) Inject 0.25 mg subcutaneously once a week for 28 days, THEN 0.5 mg once a week for 28 days. 3 mL 1 09/27/19 25 025 Active atorvastatin (LIPITOR) 80 MG tabletIndications: Coronary artery disease involving [place] coronary artery of [place] heart without angina pectoris (HRC),Mixed hyperlipidemia (HRC) Take 1 Tablet (80 mg) by mouth daily. 90 Tablet 3 09/27/19 25 Active Continuous Glucose Sensor (FREESTYLE SELINA 3 SENSOR)Indications :Type 2 diabetes mellitus with hyperlipidemia (HRC) Change every 14 days. 2 Each 09/27/19 25 Active losartan-hydrochlo rothiazide (HYZAAR) 50-12.5 MG tabletIndications: Primary hypertension (HRC) Take 1 Tablet by mouth daily. 90 Tablet 3 09/27/19 25 026 Active ALBUterol sulfate HFA 108 (90 Base) MCG/ACT inhalerIndications :Lower respiratory infection Inhale 1-2 Puffs every 4 hours as needed for Wheezing (cough). 18 g 03/18/20 22 025 Discontinued clopidogrel (PLAVIX) 75 MG tabletIndications: Coronary artery disease involving [place] coronary artery of [place] heart without angina pectoris (HRC) Take 1 Tablet (75 mg) by mouth daily. 90 Tablet 3 12/28/19 025 Discontinued(*M ed change OR same med OR reorder, new dose/directions ) allopurinol (ZYLOPRIM) 100 MG tabletIndications: H/O: gout Take 1 Tablet (100 mg) by mouth two times a day. 180 Tablet 3 12/28/19 025 Discontinued atorvastatin (LIPITOR) 80 MG tabletIndications: Coronary artery disease involving [place] coronary artery of [place] heart without angina pectoris (HRC),Mixed hyperlipidemia (HRC) Take 1 Tablet (80 mg) by mouth daily. 90 Tablet 3 12/28/19 025 Discontinued(*M ed change OR same med OR reorder, new dose/directions ) losartan (COZAAR) 25 MG tabletIndications: Coronary artery disease involving [place] coronary artery of [place] heart without angina pectoris (HRC),Primary hypertension (HRC) Take 1 Tablet (25 mg) by mouth daily. 90 Tablet 3 12/28/19 025 Discontinued Continuous Blood Gluc Sensor (FREESTYLE SELINA 2 SENSOR)Indications :Type 2 diabetes mellitus with hyperlipidemia (HRC) Use as directed for continuous blood glucose monitoring. Replace sensor every 14 days. 7 Each 3 12/28/19 025 Discontinued spironolactone-hyd rochlorothiazide (ALDACTAZIDE) 25-25 MG tabletIndications: Primary hypertension (HRC) Take 1 Tablet by mouth daily. 90 Tablet 3 12/28/19 025 Discontinued buPROPion (WELLBUTRIN XL) 300 MG 24 hour release tabletIndications: Attention deficit disorder (ADD) without hyperactivity Take 1 Tablet (300 mg) by mouth daily. 90 Tablet 3 04/22/20 025 Discontinued empagliflozin (JARDIANCE) 25 MG tabletIndications: Type 2 diabetes mellitus with hyperlipidemia (HRC) Take 1 Tablet (25 mg) by mouth daily. 90 Tablet 3 04/22/20 025 Discontinued(*M ed change OR same med OR reorder, new dose/directions ) Continuous Blood Gluc Sensor (FREESTYLE SELINA 3 SENSOR)Indications :Type 2 diabetes mellitus with hyperlipidemia (HRC) Change every 14 days. 2 Each 11 05/27/20 23 025 Discontinued(*M ed change OR same med OR reorder, new dose/directions ) glipiZIDE (GLUCOTROL) 10 MG tablet Take 1 Tablet (10 mg) by mouth daily with food. 90 Tablet 3 11/04/19 24 025 Discontinued metoprolol succinate (TOPROL XL) 100 MG 24 hour release tablet take 1 tablet by mouth every day 90 Tablet 04/13/20 24 025 Discontinued metFORMIN (GLUCOPHAGE) 1000 MG tabletIndications: Type 2 diabetes mellitus with hyperlipidemia (HRC) TAKE 1 TABLET (1,000 MG) BY MOUTH TWO TIMES A DAY. 180 Tablet 07/05/20 24 025 Discontinued(*M ed change OR same med OR reorder, new dose/directions ) Active Problems Problem Noted Date Diagnosed Date Attention deficit disorder (ADD) without hyperac tivity 03/18/2022 Sinus tachycardia 08/06/2021 B12 deficiency 07/24/2021 Type 2 diabetes mellitus with hyperlipidemia Coronary artery disease invo lving [place] coronary artery of [place] heart without angina pectoris 07/24/2018 Overview (08/06/2021): STEMI in 07/2018 s/p PCI to Mid Circumflex in [facility] system . The LMCA is normal. The LAD is free of significant disease and has mild luminal irregularities. 60% stenosis in the Distal LAD 70% stenosis in the 1st Diagonal 70% stenosis in the 1st Diagonal further down. 100% stenosis in the Mid Circumflex The RCA is free of significant disease, has diffuse luminal irregularities, and is dominant. INTERVENTION Successful 2.5mm x 12mm Balloon and 3.5mm x 20mm Drug Eluting Stent to Mid Circumflex, post stenosis 0% Mixed hyperlipidemia 07/23/2018 Primary hypertension 07/23/2018 H/O: gout 01/16/2009 Encounters Date Type Department Care Team Description 09/27/2024 3:35 PM MASTER CHEF Lab Visit [facility] [address] [facility] [place] [address] Screen for colon cancer (Primary Dx); Type 2 diabetes mellitus with hyperlipidemia (HRC); Type 2 diabetes mellitus with hyperlipidemia (HRC); B12 deficiency (HRC); Mixed hyperlipidemia (HRC) 09/27/2024 2:30 PM MASTER CHEF Office Visit [place] [address] Internal Medicine [facility] [place] [address] Veronica Holt MBBS Coronary artery disease involving [place] coronary artery of [place] heart without angina pectoris (HRC) (Primary Dx); Mixed hyperlipidemia (HRC); Type 2 diabetes mellitus with hyperlipidemia (HRC); Primary hypertension (HRC); B12 deficiency (HRC); Screening for colon cancer; Tachycardia; Ulcer of both feet, limited to breakdown of skin (HRC) 07/02/2024 Refill [place] [address] Internal Medicine [facility] [place] [address] Tremaine Amin MD Refill (metFORMIN (GLUCOPHAGE) 1000 MG tablet [Pharmacy Med Name: METFORMIN HCL 1,000 MG TABLET]) from Last 3 Months Immunizations Name Administration Dates Next Due DTaP 12/25/1983 HepB Adult (Engerix-B, 20+ y rs, 3 dose series) 08/06/2021 HepB Adult (Heplisav-B, 19+ yrs, 2 dose series) 04/22/2023,12/27/2022 Influenza IIV4 (Quadrivalent ) 0.5mL (71690) 07/16/2021,05/10/2020,06/07/2019, 018 Influenza ccIIV3 6 months+ (Flucelvax) 09/27/2024 MMR 04/07/1996 PCV13 (Prevnar) 06/07/2019 PPSV23 (Pneumovax) 08/06/2021 Pfizer Monovalent 12+ Purple Top 08/06/2021,06/19 Tdap 07/16/2018 Family History Medical History Relation Name Comments Depression Father Edward Diabetes Father Edward Agent [place] forrester spected Heart Attack Father Edward Heart Disease Father Edward High Cholesterol Father Edward Cancer Mother Melania Ovarian Cancer Relation Name Status Comments Father Edward Mother Melania Social History Tobacco Use Types Packs/Day Years Used Date Smoking Tobacco: Never Passive Smoke Exposure: Never Smokeless Tobacco: Never Tobacco Cessation:Counseling Given: Not Answered Alcohol Use Standard Drinks/Week Comments Never 0 (1 standard drink = 0.6 oz pur e alcohol) PHQ-2 Answer Date Recorded PHQ-2 Score 2 09/27/2024 Sex and Gender Information Value Date Recorded Sex Assigned at Male 07/16/2021 7:51 AM MASTER CHEF Gender Identity Male 07/16/2021 7:51 AM MASTER CHEF Sexual Orientation Not on file Last Filed Vital Signs Vital Sign Reading Time Taken Comments Blood Pressure 138/99 09/27/2024 2:20 PM MASTER [facility]F Pulse 111 09/27/2024 2:20 PM [facility] Temperature 36.7 C (98.1 F) 02/20/2022 2:35 PM CDT Respiratory Rate 15 02/20/2022 6:02 PM CDT Oxygen Saturation 96% 02/20/2022 6:0 2 PM CDT Inhaled Oxygen Concentration - - Weight 118.5 kg (261 lb 3.2 oz) 025 2:20 PM MASTER [facility] Height 177.8 cm (5' 10) 09/27/2024 2:2 0 PM MASTER CHEF with shoes Body Mass Index 37.48 09/27/2024 2:20 PM MASTER CHEF Plan of Treatment Upcoming Encounters Date Type Department Care Team (Late st Contact Info) Description 10/25/2024 3:30 PM CDT Appointment [place] [address] [place] [address]. [place] [address] Veronica Holt, JERALD [address] [place], [place] [phone] Health Maintenance Due Date Last Done Comments FIT Colon Cancer Screening 2022 Adult Preventive Visit 12/28/2023 12/27/2022, 2020 COVID-19 Vaccine ( season) 2024 08/06/2021, 07/16/2021 Diabetes: HGBA1C 12/25/2024 09/27/2024, 12/2022, 12/27/2022, Additional history exists Diabetes: Eye Exam 05/18/2025 05/18/2024 (C ompleted), 09/15/2023, 11/18/2022 (Completed) Diabetes: Creatinine 09/27/2025 09/27/2024, 12/27/2022, 02/20/2022, Additional history exists Diabetes: Foot Exam 09/27/2025 09/27/2024 ( Completed), 12/27/2022, 07/16/2021 (Completed) Diabetes: Urine Microalbumin 09/27/2025 09/27/2024, 12/27/2022, 07/16/2021 DTaP/Tdap/Td (3 - Tdap) 07/16/2028 07/16/2018, 12/24 Zoster/Shingles (1 of 2) 2028 Diabetes: Lipid Panel 09/27/2029 09/27/2024 , 12/27/2022, 07/16/2021 Pneumococcal (3 - PPSV23 or PCV20) 2043 08/06/2021, 06/07/2019 HIV Screening (Preventive Services) Completed 07/16/2021 Hep C Screening (Preventive Services) Completed 12/27/2022 HepB Completed 04/22/2023, 12/16, 08/06/2021 Cholesterol Discontinued 09/27/2024, 12/16, 07/16/2021 Influenza Completed 09/27/2024, 06/19, 05/10/2020, Additional history exists HepA Aged Out No longer eligi ble based on patient's age to complete this topic Hib Aged Out No longer eligi ble based on patient's age to complete this topic IPV (Polio) Aged Out No longer eligi ble based on patient's age to complete this topic [email or web address] Aged Out No longer eligi ble based on patient's age to complete this topic Procedures Procedure Name Priority Date/Time Associated Diagnosis Comments ALBUMIN/CREAT RATIO Routine 09/27/2024 4 :19 PM MASTER [facility]F Type 2 diabetes mellitus with hyperlipidemia (HRC) FIT COLLECTION KIT PREP Routine 09/27/2024 4:15 PM MASTER [facility]F Screen for colon cancer COMPLETE BLOOD COUNT-W/DIFF Routine 09/27/2024 4:15 PM MASTER [facility]F Type 2 diabetes mellitus with hyperlipidemia (HRC) CONTAINER TEST Routine 09/27/2024 4:15 PM MASTER [facility]F Screen for colon cancer LIPID PANEL & DIRECT LDL (IF NEEDED) Routine 09/27/2024 4:15 PM MASTER [facility]F Mixed hyperlipidemia (HRC) Type 2 diabetes mellitus with hyperlipidemia (HRC) VITAMIN B12 ONLY Routine 09/27/2024 4:15 PM MASTER CHEF B12 deficiency (HRC) TSH, SENSITIVE (WITH REFLEX) Routine 09/27/2024 4:15 PM MASTER CHEF Type 2 diabetes mellitus with hyperlipidemia (HRC) COMPREHENSIVE METABOLIC PANEL Routine 09/27/2024 4:15 PM MASTER CHEF Type 2 diabetes mellitus with hyperlipidemia (HRC) CBC AND DIFFERENTIAL PANEL Routine 09/27/2024 4:15 PM MASTER CHEF Type 2 diabetes mellitus with hyperlipidemia (HRC) HGB A1C Routine 09/27/2024 4:15 PM MASTER CHEF Type 2 diabetes mellitus with hyperlipidemia (HRC) ECG 12 LEAD OUTPATIENT Routine 09/27/2024 2:41 PM MASTER CHEF Tachycardia NOEMY (DIABETIC EYE EXAM) 09/15/2023 HEPATITIS C ANTIBODY, WITH REFLEX Routine 12/27/2022 4:34 PM CDT Need for hepatitis C screening test HIV 1/2 AG/AB 4TH GEN Routine 07/16/2021 9:47 AM MASTER CHEF Screening for HIV (human immunodeficiency virus) from Last 3 Months or Most Recently Relevant to Health Maintenance Results * (ABNORMAL) Albumin/Creatinine Ratio,Random Urine (09/27/2024 4:19 PM MASTER CHEF) Albumin/Creati nine Ratio, Urine, Random 739(H) <30 mg/g 09/27/2024 4:[address] [facility] [address] LABORATORY Albumin, Urine, Random 251.2 mg/L 09/27/2024 4:51 PM [place] [address] LABORATORY Creatinine, Urine, Random 34 >20 mg/dL mg/dL 09/27/2024 4:51 PM [place] [address] LABORATORY Urine Non-blood Collection / Unknown 09/27/2024 4:19 PM MA[facility] 09/27/2024 4:19 PM MA[facility]F Veronica Manley Yanet [facility] Performing Organization Address [facility] Co de Phone Number [place] [address] [facility] [place] [phone], [facility] * FIT Collection Kit Prep (09/27/2024 4:15 PM MASTER CHEF) [facility] Signature FIT Kit Prep Fit Kit Given 09/27/2024 6:00 PM [place] [address] LABORATORY Stool Non-blood Collection / Unknown 09/27/2024 4:15 PM MASTER [facility]F 09/27/2024 4:15 PM MA[facility]F Veronica Sindhu Yanet [facility] Performing Organization Address [facility] de Phone Number [place] [address] [address] [place] [phone] * (ABNORMAL) Lipid Panel & Direct LDL (if Needed) (09/27/2024 4:15 PM MA[facility]) Cholesterol 186 0 - 199 mg/dL 09/27/2024 4:41 PM [place] [address] [facility] Triglyceride 318(H) <=149 mg/dL 09/27/2024 4:41 PM [place] [address] [facility] HDL Cholesterol 36(L) >=40 mg/dL 4:41 PM [place] [address] [facility] LDL, Calculated 86 <130 mg/dL 4:41 PM [place] [address] [facility] Non HDL Chol, Calculated 150 <=159 mg/dL 09/27/2024 4:41 PM [place] [address] [facility] Cholesterol/HDL Ratio 5.2(H) <=5.0 09/27/2024 4:41 PM [place] [address] LAB[facility]ATORY Hours Fasting 4.0 8 - 12 Hours 09/27/2024 4:41 PM [place] [address] [facility]ORY Blood Venipuncture / Unknown 09/27/2024 4:15 PM MA[facility]F 09/27/2024 4:15 PM MA[facility]F Veronica [facility] [place] [address] LABORATORY [facility] [place] [phone] * Complete Blood Count-W/Diff (09/27/2024 4:15 PM [facility]) WBC 10.2 3.5 - 10.5 x10(9)/L 09/27/2024 4:20 PM [place] [address] [facility] RBC 5.66 4.32 - 5.72 x10(12)/L 09/27/2024 4:20 PM [place] [address] [facility] Hemoglobin 16.4 13.5 - 17.5 g/dL 09/27/2024 4:20 PM [place] [address] [facility] HCT 47.4 38.8 - 50.0 % 09/27/2024 4:20 PM [place] [address] [facility] MCV 83.7 80.0 - 100.0 fL 09/27/2024 4:20 PM [place] [address] [facility] MCH 29.0 27.6 - 33.3 pg 09/27/2024 4:20 PM [place] [address] [facility] MCHC 34.6 31.5 - 35.2 g/dL 09/27/2024 4:20 PM [place] [address] [facility] RDW 13.5 11.9 - 15.5 % 09/27/2024 4:20 PM [place] [address] [facility] Platelets 274 150 - 450 x10(9)/L 09/27/2024 4:20 PM [place] [address] [facility] Automated NRBC 0 <=0 /100 WBC 09/27/2024 4:20 PM [place] [address] [facility] Neutrophil Absolute 6.3 1.7 - 7.0 10(9)/L 09/27/2024 4:20 PM [place] [address] [facility] Lymphocyte Absolute 3.1 1.0 - 4.8 10(9)/L 09/27/2024 4:20 PM [place] [address] [facility] Monocyte Absolute 0.6 0.2 - 0.9 10(9)/L 09/27/2024 4:20 PM [place] [address] [facility] Eosinophil Absolute 0.2 0.0 - 0.5 10(9)/L 09/27/2024 4:20 PM [place] [address] [facility] Basophil Absolute 0.1 0.0 - 0.3 10(9)/L 09/27/2024 4:20 PM [place] [address] [facility] Immature Granulocyte % 0.3 0.0 - 0.5 % 09/27/2024 4:20 PM [place] [address] [facility] Blood Venipuncture / Unknown 09/27/2024 4:15 PM MASTER [facility]F 09/27/2024 4:15 PM [facility] Veronica [facility] Performing Organization Address [facility]/State/ZIP Co de Phone Number [place] [address] [place] [phone], [facility] * (ABNORMAL) Comp Metabolic Panel (09/27/2024 4:15 PM [facility]) Sodium 136 136 - 145 mmol/L 09/27/2024 4:41 PM [place] [address] [facility] Potassium 4.2 3.5 - 5.1 mmol/L 09/27/2024 4:41 PM [place] [address] [facility] Chloride 103 98 - 109 mmol/L 09/27/2024 4:41 PM [place] [address] [facility] CO2 22 20 - 29 mmol/L 09/27/2024 4:41 PM [place] [address] [facility] Anion Gap 11 6 - 16 mmol/L 09/27/2024 4:41 PM [place] [address] [facility] Calcium 9.5 8.4 - 10.4 mg/dL 09/27/2024 4:41 PM [place] [address] [facility] BUN 12 7 - 26 mg/dL 09/27/2024 4:41 PM [place] [address] [facility] Creatinine 1.04 0.73 - 1.18 mg/dL 09/27/2024 4:41 PM [place] [address] [facility] Alkaline Phosphatase 96 40 - 150 U/L 09/27/2024 4:41 PM [place] [address] [facility] AST (SGOT) 20 10 - 40 U/L 09/27/2024 4:41 PM [place] [address] [facility] ALT (SGPT) 25 0 - 55 U/L 09/27/2024 4:41 PM [place] [address] [facility] Bilirubin, Total 0.4 0.2 - 1.2 mg/dL 09/27/2024 4:41 PM [place] [address] [facility] Protein, Total 7.3 6.4 - 8.3 g/dL 09/27/2024 4:41 PM [place] [address] [facility] Albumin 3.7 3.5 - 5.0 g/dL 09/27/2024 4:41 PM [place] [address] [facility] Glucose 318(H) 70 - 100 mg/dL 09/27/2024 4:41 PM [place] [address] [facility] Comment:The given reference range is for the fasting state. Non-fasting reference range for glucose is 70 - 180 mg/dL. GFR, Estimated >60 >60 mL/min/1.7 3m2 09/27/2024 4:41 PM [place] [address] [facility] Hours Fasting 4.0 8 - 12 Hours 09/27/2024 4:41 PM [place] [address] [facility] Blood Venipuncture / Unknown 09/27/2024 4:15 PM MASTER [facility]F 09/27/2024 4:15 PM MASTER [facility]F Veronica [facility] [place] [address] LABOR[facility] [place] [phone], [facility] * TSH with Free T4 (if TSH Abnormal) (09/27/2024 4:15 PM MASTER CHEF) TSH, Reflex 2.50 0.30 - 4.50 uIU/mL 09/27/2024 9:29 PM [facility] Blood Venipuncture / Unknown 09/27/2024 4:15 PM MASTER CHEF 09/27/2024 4:15 PM MASTER [facility]F Veronica [facility]_1 Performing Organization Address [facility] de Phone Number [facility] [address] [place], [place] [address] * (ABNORMAL) Hgb A1C (09/27/2024 4:15 PM MASTER CHEF) Hemoglobin A1C (Rapid) 11.6(H) <=5.6 % 09/27/2024 4:35 PM MASTER CHEF [place] [address] [facility]ORY Estimated Average Glucose (Calc) 286 < 117 mg/dL 09/27/2024 4:35 PM MASTER [facility]F [place] [address] [facility] Comment:Estimated average gl ucose (eAG) converts A1c into glucose units (mg/dL) and estimates average glucose over the past approximately 3 months. The eAG reference interval (<117 mg/dL) corresponds to an A1c of <5.7%. Blood Venipuncture / Unknown 09/27/2024 4:15 PM MASTER [facility]F 09/27/2024 4:15 PM MASTER CHEF Narrative [place] [address] [facility] - 09/27/2024 4:35 PM MASTER CHEF For patients not previously diagnosed with diabetes: [...] direction. Veronica [facility] Performing Organization Address [facility] Co de Phone Number [place] [address] [facility] [address] [place] [phone], [facility] * (ABNORMAL) Vitamin B12 Only (09/27/2024 4:15 PM MASTER CHEF) Vitamin B12 918(H) 213 - 816 pg/mL 09/27/2024 9:36 PM [facility] Blood Venipuncture / Unknown 09/27/2024 4:15 PM MASTER CHEF 09/27/2024 4:15 PM MASTER CHEF Veronica MARQU[facility] LAB_1 Performing Organization Address City/[facility]/ZIP Co de Phone Number [facility] [address] [place] [phone] * ECG 12 Lead Outpatient (09/27/2024 2:41 PM MASTER CHEF) Ventricular Rate 107 BPM [facility] Atrial Rate 107 BPM [facility] P-R Interval 146 ms [facility] QRS Duration 74 ms [facility] QT 330 ms [facility] QTC 440 ms [facility] P [place] 35 degrees [facility] R [place] 88 degrees [facility] T [place] 42 degrees [facility] 09/27/2024 2:41 PM MASTER [facility]F Narrative [facility] - 09/27/2024 9:33 PM MASTER CHEF Sinus tachycardia Nonspecific ST and T wave [...] MARQUES PN ECG ORDERABLES Performing Organization Address City/[facility]/ZIP Co de Phone Number [facility] [address] [place] [address] * NOEMY (DIABETIC EYE EXAM) (09/15/2023) Interface Provider DUMMY/OTHER/AR * Hepatitis C Antibody, with Reflex (12/27/2022 4:34 PM CDT) Pathologist [facility] Hepatitis C Antibody Negative (Non Reactive) Negative (Non Reactive) 12/27/2022 10:08 PM CDT [facility] Comment:Antibodies to HCV no t detected. Does not exclude the possiblity of exposure to HCV. Blood Venipuncture / Unknown 12/27/2022 4:34 PM CDT 12/27/2022 4:34 PM CDT Veronica [facility]QU[facility]_1 Performing Organization Address City/[facility] Co de Phone Number [facility] [address] * HIV 1/2 Ag/Ab 4th Generation (07/16/2021 9:47 AM MASTER CHEF) [facility] HIV 1/2 Antigen/Antib wendy (4th generation) Negative (Non Reactive) Negative (Non Reactive) 07/16/2021 2:00 PM MASTER [facility]F [facility] Comment:HIV-1 p24 Antigen an d HIV-1/HIV-2 Antibody not detected Blood Venipuncture / Unknown 07/16/2021 9:47 AM MASTER CHEF 07/16/2021 9:47 AM MASTER CHEF Veronica [facility]QU[facility]_1 Performing Organization Address [facility] de Phone Number [facility] [address] from Last 3 Months or Most Recently Relevant to Health Maintenance Care Teams Tree Feller Relationship Specialty Start Date End Date Veronica Holt MBBS [address] [place], [place] [phone] PCP - General Internal Medicine 06/29/21
[2024-09-28 19:44] VITALS: BP 132/87; PULSE 99; RESP 16; TEMP 36.1; O2SAT 98; BMI 37.4
--- NOTE | 2024-09-28 20:07 | ED.GENADULT ---
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 He had some kind of procedure few weeks ago in his right leg to sclerosis vein so would go more to his deep veins. He reports that his braces and compression that he has on his legs he thinks might be causing some swelling in his legs and feet. He has noticed more discoloration. He has not had any heat or warmth of his feet. He has not had a fever. He is here with his mother. I saw his primary care doctor yesterday and no change in treatment was done. He has not had a lot of success with diuretics. He does plan on seeing the vascular people again soon Related Data Home Medications ?Medication ?Instructions ?Recorded ?Confirmed atorvastatin 80 mg tablet 80 mg PO DAILY 03/29/24 03/29/24 blood-glucose sensor (FreeStyle #1 ea 03/29/24 03/29/24 Darius 3 Sensor device) bupropion HCl 300 mg 24 hr tablet, 300 mg PO DAILY 03/29/24 03/29/24 extended release empagliflozin 25 mg tablet 25 mg PO DAILY 03/29/24 03/29/24 (Jardiance) metformin 1,000 mg tablet 1,000 mg PO BID 03/29/24 03/29/24 metoprolol succinate 100 mg 100 mg PO DAILY 03/29/24 03/29/24 tablet,extended release 24 hr Previous Rx's ?Medication ?Instructions ?Recorded furosemide 40 mg tablet (Lasix) 40 mg PO DAILY #7 tabs 09/28/24 Allergies Allergy/AdvReac Type Severity Reaction Status Date / Time No Known Drug Allergies Allergy Verified 03/29/24 15:21 Review of Systems Status of ROS: Reports: 6 or more systems reviewed and unremarkable except as noted in History and below Exam Narrative: Exam Narrative: Objective: Vital signs are within normal limits patient is afebrile He has got chronic venous stasis changes lower extremities his compression calf wraps were removed. He has some mild warmth of the mid shins bilaterally but mostly chronic stasis changes. He has got some swelling about his distal foot bilaterally where his compression wraps were. Const: Vital Signs, click to edit/add: Vital Signs - 24 hr 09/28/24 19:44 Temperature 97.0 F L Pulse Rate [Left P ulse Oximeter] 99 Respiratory Rate 16 Blood Pressure [Ri ght Upper Arm] 132/87 Pulse Oximetry 98 Oxygen Delivery Me thod Room Air Course Vital Signs Vital signs: Initial Vital Signs Temperature 97.0 F L 09/28/24 19:44 Temperature Source Temporal Artery Scan 09/28/24 19:44 Pulse Rate 99 09/28/24 19:44 Pulse Rhythm Regular 09/28/24 19:44 Respiratory Rate 16 09/28/24 19:44 Blood Pressure 132/87 09/28/24 19:44 Blood Pressure Mean 102 09/28/24 19:44 Blood Pressure Position Sitting 09/28/24 19:44 Pulse Oximetry 98 09/28/24 19:44 Oxygen Delivery Method Room Air 09/28/24 19:44 Vital Signs Temperature 97.0 F L 09/28/24 19:44 Pulse Rate 99 09/28/24 19:44 Respiratory Rate 16 09/28/24 19:44 Blood Pressure 132/87 09/28/24 19:44 Pulse Oximetry 98 09/28/24 19:44 Oxygen Delivery Method Room Air 09/28/24 19:44 Temperature 97.0 F L 09/28/24 19:44 Pulse Rate 99 09/28/24 19:44 Respiratory Rate 16 09/28/24 19:44 Blood Pressure 132/87 09/28/24 19:44 Pulse Oximetry 98 09/28/24 19:44 Oxygen Delivery Method Room Air 09/28/24 19:44 Medications Administered Medications: Discontinued Medications Generic Name Dose Route Start Last Admin Trade Name Freq PRN Reason Stop Dose Admin Furosemide 40 mg 09/28/24 20:11 09/28/24 20:23 Furosemide 40 Mg Tablet PO 09/28/24 20:12 40 mg ONCE ONE Administration Medical Decision Making [facility] Narrative Medical decision making narrative: [age] year white male with chronic venous stasis chronic dermatitis and mild cellulitis of his lower extremities bilaterally with increased edema. The patient has had his legs dependent. At this point I think he needs to remove his present compression stockings that are basically from needed the ankle and replace them with the ones he has that have a foot included that he has to wear during the day would probably leave these off today and tonight start him on Lasix 40 mg daily for the next few days and given Keflex 500 q.i.d. x7 days for the slight warmth in his distal calves and ankles bilaterally I think mostly this is a chronic stasis changes and he needs to follow up with vascular [place] which he states he will do within short order was scheduled to go October 20 and he can go sooner than that if he can call and be seen sooner. Recommend he elevate his legs throughout the day. Return as needed. Discharge Plan Discharge Clinical Impression: Edema, Cellulitis Patient Disposition: Home w/ Parent or Adult Additional Instructions: Elevate legs, would not use the leg dressings he has on now as they seem to be causing him to retain fluid in his feet. Would use the Nima stockings with feet. Lasix and Keflex as prescribed. Recommend recheck with your vascular clinic within the next week or 2. Keep your legs elevated above the level of your heart throughout the day, may walk and get around as needed but would spend most of the day with her legs elevated. Activity Level: Light activity Discharge Diet: Diabetic Prescriptions: New furosemide [Lasix] 40 mg tablet 40 mg PO DAILY Qty: 7 2RF No Action bupropion HCl 300 mg tablet extended release 24 hr 300 mg PO DAILY metoprolol succinate 100 mg tablet extended release 24 hr 100 mg PO DAILY (DME) InsyncStyle Darius 3 Sensor Device See Rx Instructions .ROUTE Q2W Qty: 1 Rx Instructions: As directed metformin 1,000 mg tablet 1,000 mg PO BID Jardiance 25 mg tablet 25 mg PO DAILY atorvastatin 80 mg tablet 80 mg PO DAILY Follow Up/Referrals: Provider,Not a Local [Primary Care Provider] - Stand Alone Forms: MyHealth Info Instructions
[2024-09-28] MEDS: FUROSEMIDE 40 MG TABLET PO (20:23)
--- OUTSIDE RECORDS SUMMARY | 2024-09-28 20:47 | XMS_ITS | Clinical Summary ---
Author Organization [facility] Address [place], [place] [address] Care Team Providers Care Flower Stripper Name Role Phone Filipe Canales MD Primary [...] if needed. 25 tablet 07/25/2018 1:49 PM BREAD SLICER MACHINE 8 Active Cholecalciferol, Vitamin D3, (VITAMIN D-3) [...] for minimum one year/ until OK'd by night clerk. 90 tablet 3 0 Active allopurinoL (ZYLOPRIM) [...] Department Care Team Description 09/15/2024 Orders Only [facility] Scanner 1 scan: (1-Ord) [...] on file Legal Sex Male 5:36 AM BREAD SLICER MACHINE Gender Identity Not on file Sexual Orientation Not on file Obstetrics History Last Filed Vital Signs Vital Sign Reading Time Taken Comments Blood Pressure 124/85 05/10/2020 3:49 PM CDT Pulse 88 05/10/2020 3:49 PM CDT Temperature 36.6 C (97.8 F) 05/10/2020 3:49 PM CDT Respiratory Rate 18 07/25/2018 12:5 5 PM BREAD SLICER MACHINE Oxygen Saturation 98% 05/10/2020 3:49 PM CDT [...] Diagnosis Comments SCAN-ULTRASOUND REPORT 09/15/2024 12:00 AM BREAD SLICER MACHINE LIPID PANEL W REFLEX MEASURED LDL Routine 04/06/2020 3:39 PM CDT Diabetes mellitus type 2 in nonobese (HC) from Last 3 Months or Most Recently Relevant to Health Maintenance Results * SCAN-ULTRASOUND REPORT (09/15/2024 12:00 AM BREAD SLICER MACHINE) Anatomical Region Laterality Modality Other us Scanner OTHER Final Result * (ABNORMAL) LIPID PANEL W REFLEX MEASURED LDL (04/06/2020 3:39 PM CDT) CHOLESTEROL,TOTAL 144 100 - 199 mg/dL 04/06/2020 8:21 PM CDT [facility] TRIGLYCERIDES 223(H) <150 mg/dL 04/06/2020 8:21 PM CDT [facility] HDL CHOLESTEROL 36(L) >40 mg/dL 0 8:21 PM CDT [facility] NON-HDL CHOLESTEROL 108 <145 mg/dl 04/06/2020 8:21 PM CDT [facility] CHOL/HDL RATIO 4.00 <4.50 04/06/2020 8:21 PM CDT [facility] LDL CHOLESTEROL 63 <=130 mg/dL 04/06/2020 8:21 PM CDT [facility] PROVIDER ORDERED STATUS RANDOM 04/06/2020 8:21 PM CDT [facility] Blood BLOOD SPECIMEN / Unknown Venipuncture / Unknown 04/06/2020 3:39 PM CDT 04/06/2020 3:40 PM CDT Filipe Canales MD CHEMISTRY Final Re sult [facility] [address] [place] [address], [facility] [address] [place] [address], [place] [phone] from Last 3 Months or Most Recently Relevant to Health Maintenance Insurance [facility] Advance Directives * Full Code (Latest Code Status on File) Date Activated Date Inactivated Comments 07/23/2018 9:23 PM 07/25/2018 4:56 PM Care Teams Flower Stripper Relationship Specialty Start Date End Date Votel, Filipe Marshall MD [address] [place] [address] PCP - General Family Practice 01/09/23
--- OUTSIDE RECORDS SUMMARY | 2024-09-28 20:47 | XMS_ITS | Encounter Summary ---
Author Organization [facility] Address [address] [address] Care Team Providers Care Trial Justice Name Role Phone Veronica Holt Primary Care Provider [phone] Encounter Details Date Type Department Care Team (Late st Contact Info) Description 09/27/2024 3:35 PM SENIOR MANAGER CREATIVE SERVICES Lab Visit [place] [id number] [place] [address]. [place], [place] [id number] Screen for colon cancer (Primary Dx); Type [...] Sex Assigned at Male 07/16/2021 7:51 AM SENIOR MANAGER CREATIVE SERVICES Gender Identity Male 07/16/2021 7:51 AM SENIOR MANAGER CRE[employer]IVE SERVICES Sexual Orientation Not on file documented as of this encounter Plan of Treatment Upcoming Encounters Date Type Department Care Team (Late Contact Info) Description 10/25/2024 3:30 PM CDT Appointment [place] [id number] Internal Medicine [address] [facility]. [place], [place] [id number] Veronica Holt MBBS [address] [place] [address] documented as of this encounter Procedures Procedure Name Priority Date/Time Associated Diagnosis Comments ALBUMIN/CREAT RATIO Routine 09/27/2024 4 :19 PM SENIOR MANAGER [employer] Type 2 diabetes mellitus with hyperlipidemia (HRC) CBC AND DIFFERENTIAL PANEL Routine 09/27/2024 4:15 PM SENIOR MA[employer]GER [employer] Type 2 diabetes mellitus with hyperlipidemia (HRC) CONTAINER TEST Routine 09/27/2024 4:15 PM SENIOR MANAGER [employer]IVE SERVICES Screen for colon cancer FIT COLLECTION KIT PREP Routine 09/27/2024 4:15 PM SENIOR MANAGER [employer] Screen for colon cancer LIPID PANEL & DIRECT LDL (IF NEEDED) Routine 09/27/2024 4:15 PM SENIOR MANAGER CRE[employer] SERVICES Mixed hyperlipidemia (HRC) Type 2 diabetes mellitus with hyperlipidemia (HRC) COMPLETE BLOOD COUNT-W/DIFF Routine 09/27/2024 4:15 PM SENIOR MANAGER [employer] Type 2 diabetes mellitus with hyperlipidemia (HRC) COMPREHENSIVE METABOLIC PANEL Routine 09/27/2024 4:15 PM SENIOR MANAGER [employer] SERVICES Type 2 diabetes mellitus with hyperlipidemia (HRC) TSH, SENSITIVE (WITH REFLEX) Routine 09/27/2024 4:15 PM SENIOR [employer]GER [employer] Type 2 diabetes mellitus with hyperlipidemia (HRC) HGB A1C Routine 09/27/2024 4:15 PM SENIOR MANAGER CRE[employer] SERVICES Type 2 diabetes mellitus with hyperlipidemia (HRC) VITAMIN B12 ONLY Routine 09/27/2024 4:15 PM SENIOR MANAGER CRE[employer]IVE SERVICES B12 deficiency (HRC) documented in this encounter Results * (ABNORMAL) Albumin/Creatinine Ratio,Random Urine (09/27/2024 4:19 PM SENIOR MANAGER CRE[employer]IVE SERVICES) Albumin/Creati nine Ratio, Urine, Random 739(H) <30 mg/g 09/27/2024 4:51 PM [facility] LABORATORY Albumin, Urine, Random 251.2 mg/L 09/27/2024 4:51 PM [place] [address] LABORATORY Creatinine, Urine, Random 34 >20 mg/dL mg/dL 09/27/2024 4:51 PM [place] [address] LABORATORY Urine Non-blood Collection / Unknown 09/27/2024 4:19 PM SENIOR MANAGER CRE[employer]IVE SERVICES 09/27/2024 4:19 PM SENIOR MANAGER CRE[employer]IVE SERVICES Veronica MARQUES LAB_1 Performing Organization Address [facility] Co de Phone Number [place] [address] [place] [phone] * FIT Collection Kit Prep (09/27/2024 4:15 PM SENIOR MANAGER CREATIVE SERVICES) [facility] FIT Kit Prep Fit Kit Given 09/27/2024 6:00 PM [place] [address] LABORATORY Stool Non-blood Collection / Unknown 09/27/2024 4:15 PM SENIOR MANAGER CRE[employer]IVE SERVICES 09/27/2024 4:15 PM SENIOR MANAGER CREATIVE SERVICES Veronica MARQUES [facility]_1 Performing Organization Address [facility] de Phone Number [place] [address] [place] [phone] * Complete Blood Count-W/Diff (09/27/2024 4:15 PM SENIOR MANAGER CRE[employer]IVE SERVICES) [facility] WBC 10.2 3.5 - 10.5 x10(9)/L 09/27/2024 4:20 PM [place] [address] LAB[facility]ORY RBC 5.66 4.32 - 5.72 x10(12)/L 09/27/2024 4:20 PM [place] [address] LAB[facility] Hemoglobin 16.4 13.5 - 17.5 g/dL 09/27/2024 4:20 PM [place] [address] [facility] HCT 47.4 38.8 - 50.0 % 09/27/2024 4:20 PM [place] [address] [facility] MCV 83.7 80.0 - 100.0 fL 09/27/2024 4:20 PM [place] [address] LAB[facility] MCH 29.0 27.6 - 33.3 pg 09/27/2024 4:20 PM [place] [address] LAB[facility] MCHC 34.6 31.5 - 35.2 g/dL 09/27/2024 4:20 PM [place] [address] [facility] RDW 13.5 11.9 - 15.5 % 09/27/2024 4:20 PM [place] [address] LAB[facility] Platelets 274 150 - 450 x10(9)/L 09/27/2024 4:20 PM [place] [address] LAB[facility] Automated NRBC 0 <=0 /100 WBC 09/27/2024 4:20 PM [place] [address] LAB[facility] Neutrophil Absolute 6.3 1.7 - 7.0 10(9)/L 09/27/2024 4:20 PM [place] [address] [facility] Lymphocyte Absolute 3.1 1.0 - 4.8 10(9)/L 09/27/2024 4:20 PM [place] [address] [facility] Monocyte Absolute 0.6 0.2 - 0.9 10(9)/L 09/27/2024 4:20 PM [place] [address] [facility] Eosinophil Absolute 0.2 0.0 - 0.5 10(9)/L 09/27/2024 4:20 PM [place] [address] [facility] Basophil Absolute 0.1 0.0 - 0.3 10(9)/L 09/27/2024 4:20 PM [place] [address] [facility] Immature Granulocyte % 0.3 0.0 - 0.5 % 09/27/2024 4:20 PM [place] [address] [facility] Blood Venipuncture / Unknown 09/27/2024 4:15 PM SENIOR MANAGER CRE[employer]IVE SERVICES 09/27/2024 4:15 PM SENIOR MANAGER CREATIVE SERVICES Ver[facility]QU[facility]_[address] [phone], [facility] * (ABNORMAL) Lipid Panel & Direct LDL (if Needed) (09/27/2024 4:15 PM SENIOR MANAGER CREATIVE SERVICES) [facility] Signature Cholesterol 186 0 - 199 mg/dL 09/27/2024 4:41 PM [place] [address] [facility] Triglyceride 318(H) <=149 mg/dL 09/27/2024 4:41 PM [place] [id number] LAB[facility]ATORY HDL Cholesterol 36(L) >=40 mg/dL 4:41 PM [place] [address] [facility] LDL, Calculated 86 <130 mg/dL 4:41 PM [place] [address] LAB[facility] Non HDL Chol, Calculated 150 <=159 mg/dL 09/27/2024 4:41 PM [place] [address] [facility] Cholesterol/HDL Ratio 5.2(H) <=5.0 09/27/2024 4:41 PM [place] [address] LAB[facility] Hours Fasting 4.0 8 - 12 Hours 09/27/2024 4:41 PM [place] [address] [facility] Blood Venipuncture / Unknown 09/27/2024 4:15 PM SENIOR MANAGER CRE[employer]IVE SERVICES 09/27/2024 4:15 PM SENIOR MANAGER CREATIVE SERVICES Veronica MARQUES [facility]_1 Performing Organization Address [facility] de Phone Number [address] [place] [phone] * (ABNORMAL) Vitamin B12 Only (09/27/2024 4:15 PM SENIOR MANAGER CREATIVE SERVICES) Vitamin B12 918(H) 213 - 816 pg/mL 09/27/2024 9:36 PM SENIOR MANAGER CREATIVE SERVICES [facility] Blood Venipuncture / Unknown 09/27/2024 4:15 PM SENIOR MANAGER CREATIVE SERVICES 09/27/2024 4:15 PM SENIOR MANAGER CREATIVE SERVICES Veronica MARQUES [facility]_1 Performing Organization Address City/[facility]/ZIP Co de Phone Number [facility] [address] [place] [phone] [place] [address] * TSH with Free T4 (if TSH Abnormal) (09/27/2024 4:15 PM SENIOR MANAGER CREATIVE SERVICES) TSH, Reflex 2.50 0.30 - 4.50 uIU/mL 09/27/2024 9:29 PM SENIOR MANAGER CREATIVE SERVICES [facility] Blood Venipuncture / Unknown 09/27/2024 4:15 PM SENIOR MANAGER CREATIVE SERVICES 09/27/2024 4:15 PM SENIOR MANAGER CREATIVE SERVICES Veronica Holt [facility]_1 [facility] [address] * (ABNORMAL) Comp Metabolic Panel (09/27/2024 4:15 PM SENIOR MANAGER CREATIVE SERVICES) Pathologist [facility] Sodium 136 136 - 145 mmol/L 09/27/2024 4:41 PM [place] [address] [facility] Potassium 4.2 3.5 - 5.1 mmol/L 09/27/2024 4:41 PM [place] [address] [facility] Chloride 103 98 - 109 mmol/L 09/27/2024 4:41 PM [place] [address] [facility] CO2 22 20 - 29 mmol/L 09/27/2024 4:41 PM [place] [address] [facility] Anion Gap 11 6 - 16 mmol/L 09/27/2024 4:41 PM [place] [address] [facility] Calcium 9.5 8.4 - 10.4 mg/dL 09/27/2024 4:41 PM [place] [id number] [facility] BUN 12 7 - 26 mg/dL 09/27/2024 4:41 PM [place] [address] [facility] Creatinine 1.04 0.73 - 1.18 mg/dL 09/27/2024 4:41 PM [place] [address] [facility] Alkaline Phosphatase 96 40 - 150 U/L 09/27/2024 4:41 PM [place] [address] [facility] AST (SGOT) 20 10 - 40 U/L 09/27/2024 4:41 PM [place] [address] [facility] ALT (SGPT) 25 0 - 55 U/L 09/27/2024 4:41 PM [place] [address] [facility] Bilirubin, Total 0.4 0.2 - 1.2 mg/dL 09/27/2024 4:41 PM [place] [address] [facility] Protein, Total 7.3 6.4 - 8.3 g/dL 09/27/2024 4:41 PM [place] [address] [facility] Albumin 3.7 3.5 - 5.0 g/dL 09/27/2024 4:41 PM [place] [address] [facility] Glucose 318(H) 70 - 100 mg/dL 09/27/2024 4:41 PM [place] [address] [facility] Comment:The given reference range is for the fasting state. Non-fasting reference range for glucose is 70 - 180 mg/dL. GFR, Estimated >60 >60 mL/min/1.7 3m2 09/27/2024 4:41 PM [place] [address] [facility] Hours Fasting 4.0 8 - 12 Hours 09/27/2024 4:41 PM [place] [address] [facility] Blood Venipuncture / Unknown 09/27/2024 4:15 PM SENIOR MANAGER CREATIVE SERVICES 09/27/2024 4:15 PM SENIOR MANAGER CREATIVE SERVICES Veronica Holt [facility] Performing Organization Address City/State/[facility] Co de Phone Number [address] [phone] * (ABNORMAL) Hgb A1C (09/27/2024 4:15 PM SENIOR MANAGER CREATIVE SERVICES) Hemoglobin A1C (Rapid) 11.6(H) <=5.6 % 09/27/2024 4:35 PM [place] [address] [facility] Estimated Average Glucose (Calc) 286 < 117 mg/dL 09/27/2024 4:35 PM [place] [address] [facility] Comment:Estimated average gl ucose (eAG) converts A1c into glucose units (mg/dL) and estimates average glucose over the past approximately 3 months. The eAG reference interval (<117 mg/dL) corresponds to an A1c of <5.7%. Blood Venipuncture / Unknown 09/27/2024 4:15 PM SENIOR MANAGER CREATIVE SERVICES 09/27/2024 4:15 PM SENIOR MANAGER CREATIVE SERVICES Narrative [place] [address] LABORATORY - 09/27/2024 4:35 PM SENIOR MANAGER CREATIVE SERVICES For patients not previously diagnosed with diabetes: [...] lab for further direction. Veronica MARQUES LAB_1 [facility] [address] LABORATORY [address] [place] [address], [facility] documented in this encounter Visit Diagnoses Diagnosis Screen for colon cancer- Primary Special screening for malignant neoplasms, colon Type 2 diabetes mellitus with hyperlipidemia (HRC) B12 deficiency (HRC) Other B-complex deficiencies Mixed hyperlipidemia (HRC) Mixed hyperlipidemia documented in this encounter Care Teams Trial Justice Relationship Specialty Start Date End Date Veronica Holt MBBS [address] [place], [place] [id number] PCP - General Internal Medicine 06/29/21 documented as of this encounter
--- OUTSIDE RECORDS SUMMARY | 2024-09-28 20:47 | XMS_ITS | Clinical Summary ---
Author Organization [facility] Address [address] [place] [address] Care Team Providers Care Carver Hand Name Role Phone Veronica Holt Primary Care Provider [phone] Source Comments You are receiving this document as you are listed as the primary care provider,follow-up provider, or the patient has been referred to you for consultation.This is in compliance with the Medicare and[facility] EHR Incentive Program,which states Providers who transition their patient to another setting of careor provider of care or refers their patient to another provider of care shouldprovide summary care record for each transition of care or referral. [facility] Allergies Active Allergy Reactions Criticality Noted Date [...] 75 MG tabletIndications: Coronary artery disease involving enterprise coronary artery of enterprise heart without angina pectoris (HRC) Take 1 Tablet (75 mg) by mouth daily. 90 Tablet 3 09/27/19 25 Active metoprolol succinate (TOPROL XL) 50 MG 24 hour release tabletIndications: Coronary artery disease involving enterprise coronary artery of enterprise heart without angina pectoris (HRC) Take 1 [...] 80 MG tabletIndications: Coronary artery disease involving enterprise coronary artery of enterprise heart without angina pectoris (HRC),Mixed hyperlipidemia (HRC) [...] 75 MG tabletIndications: Coronary artery disease involving enterprise coronary artery of enterprise heart without angina pectoris (HRC) Take 1 Tablet (75 mg) by mouth daily. 90 Tablet 3 12/28/19 025 Discontinued(*M ed change OR same med OR reorder, new dose/directions ) allopurinol (ZYLOPRIM) 100 MG tabletIndications: H/O: gout Take 1 Tablet (100 mg) by mouth two times a day. 180 Tablet 3 12/28/19 025 Discontinued atorvastatin (LIPITOR) 80 MG tabletIndications: Coronary artery disease involving enterprise coronary artery of enterprise heart without angina pectoris (HRC),Mixed hyperlipidemia (HRC) Take 1 Tablet (80 mg) by mouth daily. 90 Tablet 3 12/28/19 025 Discontinued(*M ed change OR same med OR reorder, new dose/directions ) losartan (COZAAR) 25 MG tabletIndications: Coronary artery disease involving enterprise coronary artery of enterprise heart without angina pectoris (HRC),Primary hypertension (HRC) [...] with hyperlipidemia Coronary artery disease invo lving enterprise coronary artery of enterprise heart without angina pectoris 07/24/2018 Overview (08/06/2021): [...] Department Care Team Description 09/27/2024 3:35 PM IRONER OR PRESSER Lab Visit [facility] [address] [facility] [place] [address] Screen for colon cancer (Primary Dx); Type 2 diabetes mellitus with hyperlipidemia (HRC); Type 2 diabetes mellitus with hyperlipidemia (HRC); B12 deficiency (HRC); Mixed hyperlipidemia (HRC) 09/27/2024 2:30 PM IRONER OR PRESSER Office Visit [place] [address] Internal Medicine [facility] [place] [address] Veronica Holt MBBS Coronary artery disease involving enterprise coronary artery of enterprise heart without angina pectoris (HRC) (Primary Dx); Mixed hyperlipidemia (HRC); Type 2 diabetes mellitus with hyperlipidemia (HRC); Primary hypertension (HRC); B12 deficiency (HRC); Screening for colon cancer; Tachycardia; Ulcer of both feet, limited to breakdown of skin (HRC) 07/02/2024 Refill [place] [address] Internal Medicine [facility] [place] [address] Tremaine Amin MD Refill (metFORMIN (GLUCOPHAGE) 1000 MG tablet [Pharmacy Med Name: METFORMIN HCL 1,000 MG TABLET]) from Last 3 Months Immunizations Name Administration Dates Next Due DTaP 12/25/1983 HepB Adult (Engerix-B, 20+ y rs, 3 dose series) 08/06/2021 HepB Adult (Heplisav-B, 19+ yrs, 2 dose series) 04/22/2023,12/27/2022 Influenza IIV4 (Quadrivalent ) 0.5mL (90638) 07/16/2021,05/10/2020,06/07/2019, 018 Influenza ccIIV3 6 months+ (Flucelvax) 09/27/2024 MMR 04/07/1996 PCV13 (Prevnar) 06/07/2019 PPSV23 (Pneumovax) 08/06/2021 Pfizer Monovalent 12+ Purple Top 08/06/2021,06/19 Tdap 07/16/2018 Family History Medical History Relation Name Comments Depression Father Edward Diabetes Father Edward Agent [place] forrester spected Heart Attack Father Edward Heart [...] Sex Assigned at Male 07/16/2021 7:51 AM IRONER OR PRESSER Gender Identity Male 07/16/2021 7:51 AM IRONER OR PRESSER Sexual Orientation Not on file Last Filed Vital Signs Vital Sign Reading Time Taken Comments Blood Pressure 138/99 09/27/2024 2:20 PM IRONER OR PRESSER Pulse 111 09/27/2024 2:20 PM IRONER OR PRESSER Temperature 36.7 C (98.1 F) 02/20/2022 2:35 PM CDT Respiratory Rate 15 02/20/2022 6:02 PM CDT Oxygen Saturation 96% 02/20/2022 6:0 2 PM CDT Inhaled Oxygen Concentration - - Weight 118.5 kg (261 lb 3.2 oz) 025 2:20 PM IRONER OR PRESSER Height 177.8 cm (5' 10) 09/27/2024 2:2 0 PM IRONER OR PRESSER with shoes Body Mass Index 37.48 09/27/2024 2:20 PM IRONER OR PRESSER Plan of Treatment Upcoming Encounters Date Type Department Care Team (Late st Contact Info) Description 10/25/2024 3:30 PM CDT Appointment [place] [address] [address] [place] [address]. [place] [address] Veronica Holt, JERALD [address] [place], [place] [id number] Health Maintenance Due Date Last Done Comments [...] ALBUMIN/CREAT RATIO Routine 09/27/2024 4 :19 PM IRONER OR PRESSER Type 2 diabetes mellitus with hyperlipidemia (HRC) FIT COLLECTION KIT PREP Routine 09/27/2024 4:15 PM IRONER OR PRESSER Screen for colon cancer COMPLETE BLOOD COUNT-W/DIFF Routine 09/27/2024 4:15 PM IRONER OR PRESSER Type 2 diabetes mellitus with hyperlipidemia (HRC) CONTAINER TEST Routine 09/27/2024 4:15 PM IRONER OR PRESSER Screen for colon cancer LIPID PANEL & DIRECT LDL (IF NEEDED) Routine 09/27/2024 4:15 PM IRONER OR PRESSER Mixed hyperlipidemia (HRC) Type 2 diabetes mellitus with hyperlipidemia (HRC) VITAMIN B12 ONLY Routine 09/27/2024 4:15 PM IRONER OR PRESSER B12 deficiency (HRC) TSH, SENSITIVE (WITH REFLEX) Routine 09/27/2024 4:15 PM IRONER OR PRESSER Type 2 diabetes mellitus with hyperlipidemia (HRC) COMPREHENSIVE METABOLIC PANEL Routine 09/27/2024 4:15 PM IRONER OR PRESSER Type 2 diabetes mellitus with hyperlipidemia (HRC) CBC AND DIFFERENTIAL PANEL Routine 09/27/2024 4:15 PM IRONER OR PRESSER Type 2 diabetes mellitus with hyperlipidemia (HRC) HGB A1C Routine 09/27/2024 4:15 PM IRONER OR PRESSER Type 2 diabetes mellitus with hyperlipidemia (HRC) ECG 12 LEAD OUTPATIENT Routine 09/27/2024 2:41 PM IRONER OR PRESSER Tachycardia NOEMY (DIABETIC EYE EXAM) 09/15/2023 HEPATITIS C ANTIBODY, WITH REFLEX Routine 12/27/2022 4:34 PM CDT Need for hepatitis C screening test HIV 1/2 AG/AB 4TH GEN Routine 07/16/2021 9:47 AM IRONER OR PRESSER Screening for HIV (human immunodeficiency virus) from Last 3 Months or Most Recently Relevant to Health Maintenance Results * (ABNORMAL) Albumin/Creatinine Ratio,Random Urine (09/27/2024 4:19 PM IRONER OR PRESSER) Albumin/Creati nine Ratio, Urine, Random 739(H) <30 mg/g 09/27/2024 4:[address] [facility] [address] LABORATORY Albumin, Urine, Random 251.2 mg/L 09/27/2024 4:51 PM [place] [address] LABORATORY Creatinine, Urine, Random 34 >20 mg/dL mg/dL 09/27/2024 4:51 PM [place] [address] LABORATORY Urine Non-blood Collection / Unknown 09/27/2024 4:19 PM IRONER OR PRESSER 09/27/2024 4:19 PM IRONER OR PRESSER Veronica Manley Yanet [facility]_1 Performing Organization Address [facility] Co de Phone Number [place] [address] [address] [place] [phone], [facility] * FIT Collection Kit Prep (09/27/2024 4:15 PM IRONER OR PRESSER) [facility] Signature FIT Kit Prep Fit Kit Given 09/27/2024 6:00 PM [place] [address] LABORATORY Stool Non-blood Collection / Unknown 09/27/2024 4:15 PM IRONER OR PRESSER 09/27/2024 4:15 PM IRONER OR PRESSER Veronica Sindhu Yanet [facility]_1 Performing Organization Address [facility] de Phone Number [place] [address] [place] [phone] * (ABNORMAL) Lipid Panel & Direct LDL (if Needed) (09/27/2024 4:15 PM IRONER OR PRESSER) Cholesterol 186 0 - 199 mg/dL 09/27/2024 4:41 PM [place] [address] LABORATORY Triglyceride 318(H) <=149 mg/dL 09/27/2024 4:41 PM [place] [address] LABORATORY HDL Cholesterol 36(L) >=40 mg/dL 4:41 PM [place] [address] LAB[facility]ATORY LDL, Calculated 86 <130 mg/dL 4:41 PM [place] [address] LABORATORY Non HDL Chol, Calculated 150 <=159 mg/dL 09/27/2024 4:41 PM [place] [address] LABORATORY Cholesterol/HDL Ratio 5.2(H) <=5.0 09/27/2024 4:41 PM [place] [address] LABORATORY Hours Fasting 4.0 8 - 12 Hours 09/27/2024 4:41 PM [place] [address] LABORATORY Blood Venipuncture / Unknown 09/27/2024 4:15 PM IRONER OR PRESSER 09/27/2024 4:15 PM IRONER OR PRESSER Veronica [facility]_1 [place] [address] LABORATORY [facility] [place] [phone] * Complete Blood Count-W/Diff (09/27/2024 4:15 PM [facility]) WBC 10.2 3.5 - 10.5 x10(9)/L 09/27/2024 4:20 PM [place] [address] LABORATORY RBC 5.66 4.32 - 5.72 x10(12)/L 09/27/2024 4:20 PM [place] [address] LABORATORY Hemoglobin 16.4 13.5 - 17.5 g/dL 09/27/2024 4:20 PM [place] [address] LABORATORY HCT 47.4 38.8 - 50.0 % 09/27/2024 4:20 PM [place] [address] LABORATORY MCV 83.7 80.0 - 100.0 fL 09/27/2024 4:20 PM [place] [address] LABORATORY MCH 29.0 27.6 - 33.3 pg 09/27/2024 4:20 PM [place] [address] LABORATORY MCHC 34.6 31.5 - 35.2 g/dL 09/27/2024 4:20 PM [place] [address] LABORATORY RDW 13.5 11.9 - 15.5 % 09/27/2024 4:20 PM [place] [address] LABORATORY Platelets 274 150 - 450 x10(9)/L 09/27/2024 4:20 PM [place] [address] LABORATORY Automated NRBC 0 <=0 /100 WBC 09/27/2024 4:20 PM [place] [address] LABORATORY Neutrophil Absolute 6.3 1.7 - 7.0 10(9)/L 09/27/2024 4:20 PM [place] [address] LABORATORY Lymphocyte Absolute 3.1 1.0 - 4.8 10(9)/L 09/27/2024 4:20 PM [place] [address] LAB[facility]ATORY Monocyte Absolute 0.6 0.2 - 0.9 10(9)/L 09/27/2024 4:20 PM [place] [address] LAB[facility]ORY Eosinophil Absolute 0.2 0.0 - 0.5 10(9)/L 09/27/2024 4:20 PM [place] [address] LABORATORY Basophil Absolute 0.1 0.0 - 0.3 10(9)/L 09/27/2024 4:20 PM [place] [address] LAB[facility]ATORY Immature Granulocyte % 0.3 0.0 - 0.5 % 09/27/2024 4:20 PM [place] [address] LABORATORY Blood Venipuncture / Unknown 09/27/2024 4:15 PM IRONER OR PRESSER 09/27/2024 4:15 PM [facility] Veronica [facility]_1 Performing Organization Address [facility]/State/ZIP Co de Phone Number [place] [address] [place] [phone], [facility] * (ABNORMAL) Comp Metabolic Panel (09/27/2024 4:15 PM [facility]) Sodium 136 136 - 145 mmol/L 09/27/2024 4:41 PM [place] [address] LABORATORY Potassium 4.2 3.5 - 5.1 mmol/L 09/27/2024 4:41 PM [place] [address] LABORATORY Chloride 103 98 - 109 mmol/L 09/27/2024 4:41 PM [place] [address] LABORATORY CO2 22 20 - 29 mmol/L 09/27/2024 4:41 PM [place] [address] LABORATORY Anion Gap 11 6 - 16 mmol/L 09/27/2024 4:41 PM [place] [address] LABORATORY Calcium 9.5 8.4 - 10.4 mg/dL 09/27/2024 4:41 PM [place] [address] LAB[facility]ORY BUN 12 7 - 26 mg/dL 09/27/2024 4:41 PM [place] [address] LAB[facility]ORY Creatinine 1.04 0.73 - 1.18 mg/dL 09/27/2024 4:41 PM [place] [address] LABOR[facility]ORY Alkaline Phosphatase 96 40 - 150 U/L 09/27/2024 4:41 PM [place] [address] LABOR[facility]ORY AST (SGOT) 20 10 - 40 U/L 09/27/2024 4:41 PM [place] [address] [facility]ORY ALT (SGPT) 25 0 - 55 U/L 09/27/2024 4:41 PM [place] [address] LABORATORY Bilirubin, Total 0.4 0.2 - 1.2 mg/dL 09/27/2024 4:41 PM [place] [address] LABORATORY Protein, Total 7.3 6.4 - 8.3 g/dL 09/27/2024 4:41 PM [place] [address] LABOR[facility]ORY Albumin 3.7 3.5 - 5.0 g/dL 09/27/2024 4:41 PM [place] [address] LABORATORY Glucose 318(H) 70 - 100 mg/dL 09/27/2024 4:41 PM [place] [address] LABORATORY Comment:The given reference range is for the fasting state. Non-fasting reference range for glucose is 70 - 180 mg/dL. GFR, Estimated >60 >60 mL/min/1.7 3m2 09/27/2024 4:41 PM [place] [address] LABORATORY Hours Fasting 4.0 8 - 12 Hours 09/27/2024 4:41 PM [place] [address] LABORATORY Blood Venipuncture / Unknown 09/27/2024 4:15 PM IRONER OR PRESSER 09/27/2024 4:15 PM IRONER OR PRESSER Veronica [facility]_1 [place] [address] LABORATORY [facility] [place] [phone], [facility] * TSH with Free T4 (if TSH Abnormal) (09/27/2024 4:15 PM IRONER OR PRESSER) TSH, Reflex 2.50 0.30 - 4.50 uIU/mL 09/27/2024 9:29 PM IRONER OR PRESSER [facility] Blood Venipuncture / Unknown 09/27/2024 4:15 PM IRONER OR PRESSER 09/27/2024 4:15 PM IRONER OR PRESSER Veronica [facility] LAB_1 Performing Organization Address [facility] de Phone Number [facility] [address] [place], [place] [address] * (ABNORMAL) Hgb A1C (09/27/2024 4:15 PM IRONER OR PRESSER) Hemoglobin A1C (Rapid) 11.6(H) <=5.6 % 09/27/2024 4:35 PM IRONER OR PRESSER [place] [address] LABORATORY Estimated Average Glucose (Calc) 286 < 117 mg/dL 09/27/2024 4:35 PM IRONER OR PRESSER [place] [address] LABORATORY Comment:Estimated average gl ucose (eAG) converts A1c into glucose units (mg/dL) and estimates average glucose over the past approximately 3 months. The eAG reference interval (<117 mg/dL) corresponds to an A1c of <5.7%. Blood Venipuncture / Unknown 09/27/2024 4:15 PM IRONER OR PRESSER 09/27/2024 4:15 PM IRONER OR PRESSER Narrative [place] [address] LABORATORY - 09/27/2024 4:35 PM IRONER OR PRESSER For patients not previously diagnosed with diabetes: [...] direction. Veronica [facility]_1 Performing Organization Address [facility] Co de Phone Number [place] [address] LABORATORY [address] [place] [phone], [facility] * (ABNORMAL) Vitamin B12 Only (09/27/2024 4:15 PM IRONER OR PRESSER) Vitamin B12 918(H) 213 - 816 pg/mL 09/27/2024 9:36 PM IRONER OR PRESSER [facility] Blood Venipuncture / Unknown 09/27/2024 4:15 PM IRONER OR PRESSER 09/27/2024 4:15 PM IRONER OR PRESSER Veronica [facility]QUES LAB_1 Performing Organization Address City/[facility]/ZIP Co de Phone Number [facility] [address] [place] [phone] * ECG 12 Lead Outpatient (09/27/2024 2:41 PM IRONER OR PRESSER) Ventricular Rate 107 BPM [facility] Atrial Rate 107 BPM [facility] P-R Interval 146 ms [facility] QRS Duration 74 ms [facility] QT 330 ms [facility] QTC 440 ms [facility] P Guthrie 35 degrees [facility] R G[place]rie 88 degrees [facility] T G[place]rie 42 degrees [facility] 09/27/2024 2:41 PM IRONER OR PRESSER Narrative [facility] - 09/27/2024 9:33 PM IRONER OR PRESSER Sinus tachycardia Nonspecific ST and T wave [...] MARQUES PN ECG ORDERABLES Performing Organization Address City/[facility]/ZIP Co de Phone Number [facility] [address] [place] [address] * NOEMY (DIABETIC EYE EXAM) (09/15/2023) Interface Provider DUMMY/OTHER/AR * Hepatitis C Antibody, with Reflex (12/27/2022 4:34 PM CDT) Pathologist [facility] Hepatitis C Antibody Negative (Non Reactive) Negative (Non Reactive) 12/27/2022 10:08 PM CDT [facility] Comment:Antibodies to HCV no t detected. Does not exclude the possiblity of exposure to HCV. Blood Venipuncture / Unknown 12/27/2022 4:34 PM CDT 12/27/2022 4:34 PM CDT Veronica [facility]QU[facility] LAB_1 Performing Organization Address City/[facility] Co de Phone Number [facility] [address] * HIV 1/2 Ag/Ab 4th Generation (07/16/2021 9:47 AM IRONER OR PRESSER) [facility] HIV 1/2 Antigen/Antib wendy (4th generation) Negative (Non Reactive) Negative (Non Reactive) 07/16/2021 2:00 PM IRONER OR PRESSER [facility] Comment:HIV-1 p24 Antigen an d HIV-1/HIV-2 Antibody not detected Blood Venipuncture / Unknown 07/16/2021 9:47 AM IRONER OR PRESSER 07/16/2021 9:47 AM IRONER OR PRESSER Veronica [facility]QU[facility] LAB_1 Performing Organization Address [facility] de Phone Number [facility] [address] from Last 3 Months or Most Recently Relevant to Health Maintenance Care Teams Carver Hand Relationship Specialty Start Date End Date Veronica Holt MBBS [address] [place], [place] [phone] PCP - General Internal Medicine 06/29/21
--- OUTSIDE RECORDS SUMMARY | 2024-09-28 20:47 | XMS_ITS | Encounter Summary ---
Author Organization [facility] Address [address] [place] [address] Care Team Providers Care Patient Transition Specialist Name Role Phone Veronica Holt Primary Care Provider [phone] Reason for Referral * Medication Prior Authorization - Closed Specialty Diagnoses / Procedures Referred By Jt t Referred To Contact Diagnoses Type 2 diabetes mellitus with hyperlipidemia (HRC) Veronica Holt MBBS [address] [place] [address] Referral ID Status Reason Start Date Expiration Date Visits Re quested Visits Authorized [id number] Closed 1 1 ION INSPECTOR Reason for Visit * Reason Comments MEDICATION CHECK DIZZINESS For about 3 months Wound Check Bilateral feet Encounter Details Date Type Department Care Team (Late st Contact Info) Description 09/27/2024 2:30 PM STATION INSPECTOR Office Visit [place] [address] [address] [place] [address]. [place], [place] [id number] Veronica Holt MBBS [address] [place], [place] [phone] Coronary artery disease involving alatna coronary artery of alatna heart without angina pectoris (HRC) (Primary Dx); [...] Sex Assigned at Male 07/16/2021 7:51 AM STATION INSPECTOR Gender Identity Male 07/16/2021 7:51 AM STATION INSPECTOR Sexual Orientation Not on file documented as of this encounter Last Filed Vital Signs Vital Sign Reading Time Taken Comments Blood Pressure 138/99 09/27/2024 2:20 PM STATION INSPECTOR Pulse 111 09/27/2024 2:20 PM STATION INSPECTOR Temperature - - Respiratory Rate - - Oxygen Saturation - - Inhaled Oxygen Concentration - - Weight 118.5 kg (261 lb 3.2 oz) 025 2:20 PM STATION INSPECTOR Height 177.8 cm (5' 10) 09/27/2024 2:2 0 PM STATION INSPECTOR with shoes Body Mass Index 37.48 09/27/2024 2:20 PM STATION INSPECTOR documented in this encounter Patient Instructions * Patient Instructions* Veronica Holt MBBS - 09/27/2024 2:30 PM STATION INSPECTOR Start taking medicines as prescribed today. I will check blood work today and get back to you with additional recommendations. Apply over the counter antibiotic cream on skin wounds twice a day every day until skin wounds healcompletely. Wash your feet daily with water. Follow up with me in a month for recheck. ION INSPECTOR documented in this encounter Progress Notes * [...] multiple concerns. Healthcare maintenance checklist reviewed in [facility]. Health Maintenance Due Topic Date Due FIT Colon Cancer Screening Never done Adult Preventive Visit 12/28/2023 COVID-19 Vaccine ( season) 2024 Rolando was seen today for medication check, dizziness and wound check. Diagnoses and all orders for this visit: Coronary artery disease involving alatna coronary artery of alatna heart without angina pectoris (HRC) - clopidogrel [...] in a month for recheck. JERALD Acuña ION INSPECTOR documented in this encounter Plan of Treatment Upcoming Encounters Date Type Department Care Team (Late st Contact Info) Description 10/25/2024 3:30 PM CDT Appointment [place] [address] [place] [address]. [place] [address] Veronica Holt MBBS [address] [place] [id number] Scheduled Orders Name Type Priority Associated Diagnoses Orde r Schedule FIT, OCCULT BLOOD, STOOL Lab Routine Screening for colon cancer Expected: 09/27/2024, Expires: 09/27/2025 documented as of this encounter Procedures Procedure Name Priority Date/Time Associated Diagnosis Comments ECG 12 LEAD OUTPATIENT Routine 09/27/2024 2:41 PM STATION INSPECTOR Tachycardia documented in this encounter Results * (ABNORMAL) Lipid Panel & Direct LDL (if Needed) (09/27/2024 4:15 PM STATION INSPECTOR) Cholesterol 186 0 - 199 mg/dL 09/27/2024 4:41 PM STATION INSPECTOR [place] [id number] Triglyceride 318(H) <=149 mg/dL 09/27/2024 4:41 PM STATION INSPECTOR [place] [id number] HDL Cholesterol 36(L) >=40 mg/dL 4:41 PM STATION INSPECTOR [place] [address] [facility] LDL, Calculated 86 <130 mg/dL 4:41 PM STATION INSPECTOR [place] [address] [facility] Non HDL Chol, Calculated 150 <=159 mg/dL 09/27/2024 4:41 PM STATION INSPECTOR [place] [address] [facility] Cholesterol/HDL Ratio 5.2(H) <=5.0 09/27/2024 4:41 PM STATION INSPECTOR [place] [facility] Hours Fasting 4.0 8 - 12 Hours 09/27/2024 4:41 PM STATION INSPECTOR [place] [address] [facility] Blood Venipuncture / Unknown 09/27/2024 4:15 PM STATION INSPECTOR 09/27/2024 4:15 PM STATION INSPECTOR Veronica [facility]1 Performing Organization Address City/[facility] Co de Phone Number [facility] [address] [facility] [address] [place] [address], [facility] * (ABNORMAL) Vitamin B12 Only (09/27/2024 4:15 PM STATION INSPECTOR) Vitamin B12 918(H) 213 - 816 pg/mL 09/27/2024 9:36 PM STATION INSPECTOR [facility] Blood Venipuncture / Unknown 09/27/2024 4:15 PM STATION INSPECTOR 09/27/2024 4:15 PM STATION INSPECTOR Veronica MARQU[facility]1 Performing Organization Address City/[facility]/ZIP Co de Phone Number [facility] [address] [place], [place] [address] * TSH with Free T4 (if TSH Abnormal) (09/27/2024 4:15 PM STATION INSPECTOR) TSH, Reflex 2.50 0.30 - 4.50 uIU/mL 09/27/2024 9:29 PM STATION INSPECTOR [facility] Blood Venipuncture / Unknown 09/27/2024 4:15 PM STATION INSPECTOR 09/27/2024 4:15 PM STATION INSPECTOR [facility] [address] [employer] [address] * (ABNORMAL) Comp Metabolic Panel (09/27/2024 4:15 PM STATION INSPECTOR) Pathologist [facility] Sodium 136 136 - 145 mmol/L 09/27/2024 4:41 PM [place] [address] [facility] Potassium 4.2 3.5 - 5.1 mmol/L 09/27/2024 4:41 PM [place] [id number] Chloride 103 98 - 109 mmol/L 09/27/2024 4:41 PM [place] [address] [facility] CO2 22 20 - 29 mmol/L 09/27/2024 4:41 PM [place] [id number] Anion Gap 11 6 - 16 mmol/L 09/27/2024 4:41 PM [place] [id number] Calcium 9.5 8.4 - 10.4 mg/dL 09/27/2024 4:41 PM [place] [id number] BUN 12 7 - 26 mg/dL 09/27/2024 4:41 PM [place] [id number] Creatinine 1.04 0.73 - 1.18 mg/dL 09/27/2024 4:41 PM [place] [id number] Alkaline Phosphatase 96 40 - 150 U/L 09/27/2024 4:41 PM [place] [id number] AST (SGOT) 20 10 - 40 U/L 09/27/2024 4:41 PM [place] [id number] ALT (SGPT) 25 0 - 55 U/L 09/27/2024 4:41 PM [place] [id number] Bilirubin, Total 0.4 0.2 - 1.2 mg/dL 09/27/2024 4:41 PM [place] [address] [facility] Protein, Total 7.3 6.4 - 8.3 g/dL 09/27/2024 4:41 PM [place] [address] [facility] Albumin 3.7 3.5 - 5.0 g/dL 09/27/2024 4:41 PM [place] [address] [facility] Glucose 318(H) 70 - 100 mg/dL 09/27/2024 4:41 PM [place] [address] [facility] Comment:The given reference range is for the fasting state. Non-fasting reference range for glucose is 70 - 180 mg/dL. GFR, Estimated >60 >60 mL/min/1.7 3m2 09/27/2024 4:41 PM [place] [address] [facility] Hours Fasting 4.0 8 - 12 Hours 09/27/2024 4:41 PM [place] [address] [facility] Blood Venipuncture / Unknown 09/27/2024 4:15 PM STATION INSPECTOR 09/27/2024 4:15 PM STATION INSPECTOR Veronica [facility]QU[facility]_[address] [address] * (ABNORMAL) Hgb A1C (09/27/2024 4:15 PM STATION INSPECTOR) Hemoglobin A1C (Rapid) 11.6(H) <=5.6 % 09/27/2024 4:35 PM [place] [address] [facility] Estimated Average Glucose (Calc) 286 < 117 mg/dL 09/27/2024 4:35 PM [place] [address] [facility] Comment:Estimated average gl ucose (eAG) converts A1c into glucose units (mg/dL) and estimates average glucose over the past approximately 3 months. The eAG reference interval (<117 mg/dL) corresponds to an A1c of <5.7%. Blood Venipuncture / Unknown 09/27/2024 4:15 PM STATION INSPECTOR 09/27/2024 4:15 PM STATION INSPECTOR Narrative [place] [address] [facility] - 09/27/2024 4:35 PM STATION INSPECTOR For patients not previously diagnosed with diabetes: [...] direction. Veronica MARQUES [facility]_1 Performing Organization Address City/[facility] Co de Phone Number [facility] [address] [facility] [address] [place] [address], [facility] * ECG 12 Lead Outpatient (09/27/2024 2:41 PM STATION INSPECTOR) Ventricular Rate 107 BPM [facility] Atrial Rate 107 BPM [facility] P-R Interval 146 ms [facility] QRS Duration 74 ms [facility] QT 330 ms [facility] QTC 440 ms [facility] P [place] 35 degrees [facility] R [place] 88 degrees M[facility] T [place] 42 degrees [facility] 09/27/2024 2:41 PM STATION INSPECTOR Narrative [facility] - 09/27/2024 9:33 PM STATION INSPECTOR Sinus tachycardia Nonspecific ST and T wave [...] MARQUES PN ECG ORDERABLES Performing Organization Address [facility]/ZIP Co de Phone Number [facility] [address] [place] [address] documented in this encounter Visit Diagnoses Diagnosis Coronary artery disease involving alatna coronary artery of alatna heart without angina pectoris (HRC)- Primary Mixed hyperlipidemia (HRC) Mixed hyperlipidemia Type 2 diabetes mellitus with hyperlipidemia (HRC) Primary hypertension (HRC) Unspecified essential hypertension B12 deficiency (HRC) Other B-complex deficiencies Screening for colon cancer Special screening for malignant neoplasms, colon Tachycardia Tachycardia, unspecified Ulcer of both feet, limited to breakdown of skin (HRC) documented in this encounter Care Teams Patient Transition Specialist Relationship Specialty Start Date End Date Veronica Holt MBBS [address] [place] [address] PCP - General Internal Medicine 06/29/21 documented as of this encounter
== END 2024-09-28 20:45 | disposition home or self-care (01) ==
LOC: ED 20:45
PROVIDERS: Emergency Provider Family Medicine
DX: R60.0 Localized edema (principal); L03.115 Cellulitis of right lower limb; L03.116 Cellulitis of left lower limb
CPT/HCPCS: 99284; A9270